=== PATIENT | male | born 1935 | race Two or more races ===

== ENCOUNTER 2018-11-28 09:46 | Inpatient (IN) | payer MEDICARE, MEDICAID ==
[~2018-11-28] VITALS: Ht 172.7 cm; Wt 79.3 kg
[~2018-11-28 09:46] MED LIST: A & D OINT1 APPLI1 TOPIC; ARICEPT10 MG GT; ASPIR 8181 MG GT; CIPRO500 MG GT; COLACE250 MG GT; CRANBERRY500 M4 PO; DOCUSATE S50 MG/5 ML GT; DULCOLAX10 MG RC; FERROUS SU300 MG/5 M GT; FLONASE1 SPRAYS NASAL; FUROSEMIDE20 M1 ORAL; HEPARIN SO5000 UNIT2 SUBQ; HEPARIN2000 UNIT/ SUBQ; JANUVIA100 MG GT; KEPPRA LIQ100 MG/1 M GT; KEPPRA500 MG GT; LANTUS SOL100 UNIT/1 SUBQ; LASIX20 M1 ORAL; LEVAQUIN500 MG ORAL; LOPRESSOR25 M1 GT; METFORMIN HCL500 M1 GT; MILK OF MA2400 MG/10 GT; MIRALAX17 G2 GT; MOM30 ML GT; MULTIVITAMINS1 EAC8 GT; PROSCAR5 MG GT; PROSTATE PQ TA1 EACH PO; SENNA8.6 M3 GT; SIMVASTATIN5 MG GT; SINGULAIR10 MG GT; SINGULAIR10 MG ORAL; TYLENOL650 MG/20. GT; UTI-STAT L3875 MG/31 GT; VITAMIN C500 M1 GT; ZANTAC150 MG GT; ZETIA10 MG GT; ZETIA10 MG ORAL; ZOCOR20 M1 GT
[2018-11-28] MEDS ORDERED: ARTIFICIAL TEAR15 ML BOTH EYES (10:00)
[2018-11-28] MEDS ORDERED: KEPPRA LIQ100 MG/1 M GT (10:10)
[2018-11-28] MEDS ORDERED: LIPITOR40 MG GT (10:10)
[2018-11-28] MEDS ORDERED: VITAMIN D22000 UNIT GT (10:10)
[2018-11-28] MEDS ORDERED: CARVEDILOL12.5 MG GT (10:10)
[2018-11-28] MEDS ORDERED: LACTULOSE20 GM/301 GT (10:10)
[2018-11-28] MEDS ORDERED: PROSCAR5 MG GT (10:10)
[2018-11-28] MEDS ORDERED: FUROSEMIDE20 M1 GT (10:10)
[2018-11-28] MEDS ORDERED: LANTUS SOL100 UNIT/1 SUBQ (10:10)
[2018-11-28] MEDS ORDERED: ASPIRIN81 MG GT (10:10)
[2018-11-28] MEDS ORDERED: JANUVIA25 MG GT (10:10)
[2018-11-28] MEDS ORDERED: MIRALAX17 G2 GT (10:15)
[2018-11-28] MEDS ORDERED: levETIRAcetam 1,000mg/NS100ml 100 ML IVPB ONE (10:15)
[2018-11-28] MEDS ORDERED: NOVOLIN R100 UNIT/1 SUBQ (10:15)
[2018-11-28] MEDS ORDERED: POTASSIUM CHLO20 ME2 GT (10:15)
[2018-11-28] MEDS ORDERED: GAS RELIEF125 M1 GT (10:15)
[2018-11-28] MEDS ORDERED: LOSARTAN POTASS50 MG GT (10:15)
[2018-11-28] MEDS ORDERED: ZANTAC150 MG GT (10:15)
[2018-11-28] MEDS ORDERED: CULTURELLE1 EACH GT (10:17)
[2018-11-28] MEDS ORDERED: CLONIDINE0.1 MG GT (10:19)
[2018-11-28 10:42] VITALS: BP 168/94
[2018-11-28 10:47] LABS: APPEARANCE,URINE CLEAR; BASOPHILS % (AUTO) 0.3 % (0.0-2.0); BILIRUBIN, URINE NEGATIVE (NEGATIVE); EOSINOPHILS % (AUTO) 2.7 % (0.0-3.0); GLUCOSE, URINE (UA) NEGATIVE (NEGATIVE); HEMOGLOBIN 12.1 G/DL (14.2-18.0); KETONES,URINE NEGATIVE (NEGATIVE); LEUKOCYTE ESTERASE ,URINE 3+ (NEGATIVE); LYMPHOCYTES % (AUTO) 19.5 % (20.0-45.0); MEAN CORPUSCULAR VOLUME 87 FL (80-99); MONOCYTES % (AUTO) 6.8 % (1.0-10.0); NEUTROPHILS % (AUTO) 70.6 % (45.0-75.0); NITRITE,URINE POSITIVE (NEGATIVE); PH,URINE 6 (4.5-8.0); PLATELET COUNT 237 K/UL (150-450); PROTEIN,URINE 2+ (NEGATIVE); RED BLOOD COUNT 4.25 M/UL (4.70-6.10); RED CELL DISTRIBUTION WIDTH 13.6 % (11.6-14.8); UROBILINOGEN,URINE NORMAL MG/DL (0.0-1.0); WHITE BLOOD COUNT 9.4 K/UL (4.8-10.8)
[2018-11-28 10:55] LABS: COLOR,URINE YELLOW
--- NOTE | 2018-11-28 10:55 | NUR ---
ED Nurse Note:pt. was BIBA from SNF with dislodged GT and s/p seizure, pt. is alert but not oriented at all as his base line, skin is intact with redness and irritation around GT site , blood and urine was sent to labs and IV keppra given, pt. was placed on air sampling and monitoring with seizure precausions, side rails padded
[2018-11-28 10:58] LABS: ANION GAP 6 mmol/L (5-15); BLOOD UREA NITROGEN 15 mg/dL (7-18); CALCIUM 8.7 MG/DL (8.5-10.1); CARBON DIOXIDE 28 MMOL/L (21-32); CHLORIDE 107 MMOL/L (98-107); CREATININE 0.7 MG/DL (0.55-1.30); POTASSIUM 3.7 MMOL/L (3.5-5.1); SODIUM 141 MMOL/L (136-145)
[2018-11-28] MEDS ORDERED: cefTRIAXone 1 GM in NS 55 ML IVPB ONE (11:00)
[2018-11-28 11:13] LABS: ALANINE AMINOTRANSFERASE 15 U/L (12-78); ALBUMIN 2.7 G/DL (3.4-5.0); ALBUMIN/GLOBULIN RATIO 0.6 (1.0-2.7); ALKALINE PHOSPHATASE 108 U/L (46-116); ASPARTATE AMINO TRANSFERASE 18 U/L (15-37); BILIRUBIN,TOTAL 0.7 MG/DL (0.2-1.0); CKMB 0.6 NG/ML (0.0-3.6); CREATINE KINASE 124 U/L (26-308)
--- NOTE | 2018-11-28 12:40 | Diagnostic Imaging Report ---
Indication: Cough Technique: One view of the chest Comparison: 05/24/2015 Findings: The heart is enlarged. The left hemidiaphragm is somewhat obscured, may reflect some atelectasis, pleural fluid, or consolidation at the left lung base. The right lung and pleural space are clear.. Impression: Cardiomegaly. Possible left basilar pleural and/or parenchymal disease
[2018-11-28 13:08] VITALS: BP 157/95
[2018-11-28 13:10] VITALS: BP 157/74
--- NOTE | 2018-11-28 13:10 | NUR ---
ED Nurse Note:called report to tele nurse hugo Mcknight. was taken up
--- NOTE | 2018-11-28 13:15 | NUR ---
NURSE NOTES: Received report from JERICHO Hogan. Patient transferred from ED to tele. quality control on, IV on left hand 22G, asymptomatic, patent, intact. No active s/s cardiac, respiratory distress noticed at this time, no seizure at this time. Endorsed EDMD inserted G-tube, confirmed by x-ray abd. AOx0, open eyes spontaneously, patient on room air. Skin assessed, redness on sacral area, scrotum area, on lower back white/red suspecting psoriasis with no openings, redness around g-tube area d/t device related pressure. Bed in lowest position, side rails padded, up x2, call light within reach. Will continue to monitor.
--- NOTE | 2018-11-28 13:45 | NUR ---
NURSE NOTES: Called Dr. Garrido for admission order. Awaiting for callback.
--- NOTE | 2018-11-28 14:52 | Diagnostic Imaging Report ---
Indication: Post gastrostomy placement Technique: Supine view of the abdomen after injection of water-soluble contrast into gastrostomy Comparison: 05/27/2015 Findings: Contrast opacifies the stomach. No contrast extravasation is demonstrated. The bowel gas pattern is unremarkable. Impression: Satisfactory position of gastrostomy tube
[2018-11-28 16:00] VITALS: BP 132/81
--- NOTE | 2018-11-28 16:00 | NUR ---
NURSE NOTES: Called Dr. Love second time for admission order. Awaiting for callback.
--- NOTE | 2018-11-28 17:05 | NUR ---
NURSE NOTES: Received admission orders from Dr. Love. Per Dr. DUNBAR without contrast, NPO except medication at this time follow up with Dr. Appiah for diet order. Order noted, entered, carried out. Will continue to monitor.
--- NOTE | 2018-11-28 17:28 | Emergency Room Report ---
History of Present Illness General Chief Complaint: Seizure Source: Medical Record, EMS, PMD Present Illness HPI Patient presents to the emergency department today complaining of acute onset of seizures. Patient apparently also has a G-tube. Patient at baseline is bedridden. Patient was found to have a dislodged G-tube because of this. Contacted and patient was developed. Patient does have a history of seizures. Patient reports he is compliant with medications because medications are usually administered. Patient seizure spontaneously resolved prior to the emergency patient was transferred I am unable to obtain any history other in the history obtained from paramedics. In from care home patient's primary care physician is Dr. Michael. Symptoms are noted to be severe. No other modifying factors. No other associated signs and symptoms. No other complaints were noted. Allergies: Coded Allergies: NO KNOWN DRUG ALLERGIES (Unverified Allergy, Unknown, 05/24/15) Patient History Past Medical History: other - dementia, g-tube, seizures Past Surgical History: other Social History Narrative stays at [facility]. Reviewed Nursing Documentation: PMH: Agreed; PSxH: Agreed Nursing Documentation-PMH Past Medical History: No History, Except For Hx Cardiac Problems: Yes - HYPERLIPIDEMIA Hx Hypertension: Yes Hx Diabetes: Yes - TYPE2 Hx Cancer: No Hx Gastrointestinal Problems: Yes - GT, GERD Hx Neurological Problems: Yes - DEMENTIA Hx Dementia: Yes Hx Seizures: Yes Review of Systems All Other Systems: negative except mentioned in HPI Physical Exam Vital Signs Date Time Temp Pulse Resp B/P (MAP) Pulse Ox O2 Delivery O2 Flow Rate FiO2 11/28/18 09:40 98.4 75 19 181/100 (127) 98 Room Air Sp02 EP Interpretation: reviewed, normal General Appearance: other - weak, not very responsive, Chronically Ill Head: atraumatic Eyes: bilateral eye normal inspection ENT: normal ENT inspection, hearing grossly normal, dry mucus membranes Neck: normal inspection, full range of motion, supple, no bony tend Respiratory: normal inspection, lungs clear, normal breath sounds, no respiratory distress, no retraction, no wheezing Cardiovascular #1: regular rate, rhythm, no edema Gastrointestinal: normal bowel sounds, non tender, soft, no guarding, no hernia , other - gastrostomy site intact. No active bleeding Genitourinary: no CVA tenderness Musculoskeletal: normal inspection, back normal, normal range of motion Neurologic: normal inspection, alert, responsive, speech normal Psychiatric: normal inspection, judgement/insight normal, mood/affect normal Skin: no rash Procedures Additional Procedure Procedure Narrative G-tube replacement procedure: After consent was obtained from patient's primary care physician for procedure the G-tube stoma was prepped in the sterile manner. G-tube was gently introduced into the stoma until it was about 7 cm in. The G-tube balloon was inflated with 5 mL of sterile water. The G-tube was gently retracted and another 5 mL of sterile water was added. The G-tube was retracted until it could be retracted no further. Another 10 mL of sterile water was added. The G -tube was tacked in place at about 2-3 cm. There is no complications associated procedure. Placement was confirmed by x-ray as interpreted by radiology. 18 iraqi G-tube was used. Medical Decision Making Diagnostic Impression: Primary Impression: Epileptic seizure, generalized Additional Impressions: Dislodged gastrostomy tube UTI (urinary tract infection) Pneumonia ER Course Patient presents emergency department today complaining of dislodged G-tube. Differential diagnosis include electrolyte abnormality, medication noncompliance , G-tube dislodgment, infectious process, intracranial process to name a few. Given the severity of the patient's presentation I felt this is a highly complex patient. This patient required extensive workup. Patient's laboratory work-up shows evidence of UTI. Patient was given Rocephin. In addition patient require replacement G-tube. G-tube was replaced. Patient was also given a Keppra loading dose seizure. Case was discussed in detail with Dr. Hernandez. Patient will be admitted to telemetry for further management Labs Test 11/28/18 10:20 White Blood Count 9.4 K/UL (4.8-10.8) Red Blood Count 4.25 M/UL (4.70-6.10) Hemoglobin 12.1 G/DL (14.2-18.0) Hematocrit 37.0 % (42.0-52.0) Mean Corpuscular Volume 87 FL (80-99) Mean Corpuscular Hemoglobin 28.5 PG (27.0-31.0) Mean Corpuscular Hemoglobin Concent 32.7 G/DL (32.0-36.0) Red Cell Distribution Width 13.6 % (11.6-14.8) Platelet Count 237 K/UL (150-450) Mean Platelet Volume 6.4 FL (6.5-10.1) Neutrophils (%) (Auto) 70.6 % (45.0-75.0) Lymphocytes (%) (Auto) 19.5 % (20.0-45.0) Monocytes (%) (Auto) 6.8 % (1.0-10.0) Eosinophils (%) (Auto) 2.7 % (0.0-3.0) Basophils (%) (Auto) 0.3 % (0.0-2.0) Urine Color Yellow Urine Appearance Clear Urine pH 6 (4.5-8.0) Urine Specific [place] 1.015 (1.005-1.035) Urine Protein 2+ (NEGATIVE) Urine Glucose (UA) Negative (NEGATIVE) Urine Ketones Negative (NEGATIVE) Urine Blood 1+ (NEGATIVE) Urine Nitrite Positive (NEGATIVE) Urine Bilirubin Negative (NEGATIVE) Urine Urobilinogen Normal MG/DL (0.0-1.0) Urine Leukocyte Esterase 3+ (NEGATIVE) Urine RBC 0-2 /HPF (0 - 0) Urine WBC 20-30 /HPF (0 - 0) Urine Squamous Epithelial Cells Few /LPF (NONE/OCC) Urine Bacteria Many /HPF (NONE) Sodium Level 141 MMOL/L (136-145) Potassium Level 3.7 MMOL/L (3.5-5.1) Chloride Level 107 MMOL/L (98-107) Carbon Dioxide Level 28 MMOL/L (21-32) Anion Gap 6 mmol/L (5-15) Blood Urea Nitrogen 15 mg/dL (7-18) Creatinine 0.7 MG/DL (0.55-1.30) Estimat Glomerular Filtration Rate mL/min (>60) Glucose Level 157 MG/DL (74-106) Calcium Level 8.7 MG/DL (8.5-10.1) Total Bilirubin 0.7 MG/DL (0.2-1.0) Aspartate Amino Transf (AST/SGOT) 18 U/L (15-37) Alanine Aminotransferase (ALT/SGPT) 15 U/L (12-78) Alkaline Phosphatase 108 U/L (46-116) Total Creatine Kinase 124 U/L (26-308) Creatine Kinase MB 0.6 NG/ML (0.0-3.6) Creatine Kinase MB Relative Index 0.4 Troponin I 0.000 ng/mL (0.000-0.056) Pro-B-Type Natriuretic Peptide 344 pg/mL (0-125) Total Protein 7.2 G/DL (6.4-8.2) Albumin 2.7 G/DL (3.4-5.0) Globulin 4.5 g/dL Albumin/Globulin Ratio 0.6 (1.0-2.7) Lipase 83 U/L (73-393) EKG Diagnostic Results Rate: normal Rhythm: NSR ST Segments: no acute changes Rhythm Strip Diag. Results EP Interpretation: yes Rate: 80s Rhythm: NSR, no PVC's, no ectopy Chest X-Ray Diagnostic Results Chest X-Ray Diagnostic Results : Chest X-Ray Ordered: Yes # of Views/Limited/Complete: 1 View Indication: Shortness of Breath EP Interpretation: No Impression: Other - possible left sided process Last Vital Signs Date Time Temp Pulse Resp B/P (MAP) Pulse Ox O2 Delivery O2 Flow Rate FiO2 11/28/18 14:09 Room Air 11/28/18 13:10 97.7 70 16 157/74 (101) 97 Status: improved Disposition: ADMITTED INPATIENT Condition: Serious Referrals: Sanjiv Love MD (PCP) Gabe Lopez MD Nov 28, 2018 17:28
[2018-11-28] MEDS ORDERED: LORazepam Inj 2mg/ml 1ml IV PRN (17:30)
[2018-11-28] MEDS: Lactulose 20gm/30ml UDC GT SCH (18:18)
[2018-11-28] MEDS: Docusate 100mg/10ml Liq GT SCH (18:18)
[2018-11-28] MEDS: Artificial Tears 1.4% Op Soln BOTH EYES SCH (18:30)
--- NOTE | 2018-11-28 19:34 | NUR ---
NURSE NOTES: Per Dr. Love, OFF tele order. Order noted, entered, carried out.
--- NOTE | 2018-11-28 19:35 | NUR ---
HAND-OFF: Report given to JERICHO Rain.
--- NOTE | 2018-11-28 19:41 | NUR ---
NURSE NOTES: Received report from JERICHO Mcknight. Patient is asleep, lying semi-fowlers, resting comfortably. Arousable to shaking. No signs of acute distress or pain noted at this time. AOx0, unable to make needs known. Checked IV site, patent, no erythmia, bleeding, or infiltration noted. G-tube patent and flushed. Mild redness noted around stoma site. Bed at lowest position, brakes on, side rails up x3, side rails padded following seizure precautions. Suction at bedside. Call light within reach. Will continue plan of care.
[2018-11-28 20:00] VITALS: BP 141/78
[2018-11-28] MEDS: NovoLOG Insulin Flexpen SUBQ SCH (20:35)
[2018-11-28] MEDS: Miralax 17gm pkt GT SCH (20:36)
--- NOTE | 2018-11-28 20:44 | NUR ---
NURSE NOTES: Received order from Dr. Love for Duoneb nebulizer Q6HR [id number] medication. Noted and carried out.
--- NOTE | 2018-11-28 21:16 | NUR ---
NURSE NOTES: Received orders from Dr. Appiah. Noted and carried out.
[2018-11-28] MEDS: Heparin 5000 units/ml inj SUBQ SCH (21:17)
[2018-11-28] MEDS: Montelukast 10mg tablet GT SCH (21:26)
[2018-11-28] MEDS: Carvedilol 25mg Tab GT SCH (21:26)
[2018-11-28] MEDS: Atorvastatin 20mg tab GT SCH (21:26)
[2018-11-28] MEDS: Levemir Flexpen SUBQ SCH (21:27)
[2018-11-28] MEDS: Flonase Nasal Inhaler 16gm NASAL SCH (21:27)
[2018-11-28] MEDS: D5 1/2NS 1,000 ML IV SCH (21:49)
[2018-11-28] MEDS ORDERED: Azithromycin 500 MG in NS 275 ML IV ONE (22:00)
[2018-11-29] VITALS: BP 148/72
[2018-11-29] MEDS: Artificial Tears 1.4% Op Soln BOTH EYES SCH ×4 (00:38→17:37)
[2018-11-29] MEDS: Albuterol/Ipratropium 3ml neb HHN SCH ×2 (01:22→07:43)
--- NOTE | 2018-11-29 01:45 | History and Physical Report ---
DATE OF ADMISSION: 11/28/2018 CHIEF COMPLAINT: Seizure, dislodged G-tube, and UTI. HISTORY OF PRESENT ILLNESS: This is a very pleasant, but unfortunate 83-year-old male, resident of [facility], who was noted this morning to have a seizure and his G-tube got dislodged. The patient was transferred via ambulance 911 to [facility] ER where he was found to have a UTI. He was started on Rocephin for urinary tract infection and also Keppra for his seizure activity. The G-tube was replaced by the ER doctor and was confirmed for placement. The patient will be admitted for IV antibiotics. Neurology consult for seizure activity and G-tube management. REVIEW OF SYSTEMS: The patient is demented and unable to give review of systems. Pertinent positives and negatives per history of present illness. PAST MEDICAL HISTORY: History of dementia, history of seizures, history of diabetes, history of hyperlipidemia, history of GI bleed, history of dysphagia status post PEG, history of advanced Alzheimer's dementia, history of GERD, history of chronic constipation, and history of prior pneumonia. FAMILY HISTORY: Noncontributory. SOCIAL HISTORY: The patient is . His lives in the area. His daughter attends to his medical needs. No history of smoking, drugs, or alcohol use. He lives at [facility]. ALLERGIES: No known drug allergies. PHYSICAL EXAMINATION: VITAL SIGNS: Blood pressure is 132/81, pulse 69, respiratory rate 20, and temperature 97.9. Saturating 98% on room air. GENERAL: He is a well-nourished and well-developed, slightly overweight male looking younger than stated age. He appears in no acute distress. HEENT: Normocephalic and atraumatic. Extraocular muscles are intact. Pupils are equal, round, and reactive to light. Anicteric sclerae. Oropharynx is poor dentition and dry. NECK: Supple. CHEST: Clear to auscultation with occasional rhonchi. CARDIAC: Normal S1, S2. No murmurs, rubs, or gallops. ABDOMEN: Bowel sounds positive. Belly is soft and nontender. G-tube is intact. EXTREMITIES: No clubbing, cyanosis, or edema. NEUROLOGIC: The patient is awake and alert, but nonverbal. Does not follow commands. Lower extremities are in flexion contracture. SKIN: Clear without any rash or petechiae. No ulcers noted. LABORATORY DATA: Laboratory evaluation on admission, the patient's WBC is 9.4, hemoglobin 12.1, hematocrit 37.0, and platelet count 237. Chemistry panel shows a sodium 141, potassium 3.7, chloride 107, carbon dioxide 28, anion gap 6, BUN 15, and creatinine 0.7. Glucose is 157. Calcium is 8.7. Total bilirubin 0.7, AST 18, ALT 15, and alkaline phosphatase 108. Total creatine kinase is 124. Troponin 0. Beta-natriuretic peptide is 344. Total protein is 7.4. Albumin is low at 2.7, globulin 4.5. Lipase 633. Urinalysis is yellow, clear. Specific gravity is 1.015, 2+ protein, negative glucose and ketones, 1+ blood, positive nitrite, 2+ leukocytes, 20-30 white cells, and many bacteria. Chest x-ray done in the ER shows possible left basal pleural and parenchymal disease. KUB done in the ER shows satisfactory position of gastrostomy tube. IMPRESSION: This is an 83-year-old male admitted with seizure activity, urinary tract infection, possible left lower lobe pneumonia, and dislodged G-tube. The patient will be admitted to telemetry floor with the following medical problems, 1. Seizure activity, new-onset. We will get neurology consult and MRI of the brain. EEG will be ordered by Neurology. Continue with Keppra 500 mg twice a day via G-tube. We will get Ativan 1 mg as needed seizure. Seizure precautions. Aspiration precautions. 2. Urinary tract infection, on Rocephin. Follow up on urine cultures. We will get Infectious Disease consult. 3. Hypertension, poorly controlled. We will increase carvedilol to 25 mg b.i.d. and continue with other current blood pressure medications. 4. Dislodged G-tube. We will get the GI consult. We will hold the G-tube feeds until GI determines when to start feeds. 5. Possible left lower lobe pneumonia. Continue with IV antibiotics. ID is consulted. 6. Continue supportive care. 7. History of chronic constipation. Continue bowel regimen with MiraLax and Colace. 8. Diabetes mellitus. We will place the patient on insulin sliding scale and continue Januvia. Diabetic diet will be started when cleared by GI. 9. VT prophylaxis with heparin subcutaneous 5000 every 8 hours. 10. The patient is Full Code per POL. Sanjiv Love M.D. DR: SHY JOB#: [id number] CC:
--- NOTE | 2018-11-29 03:30 | NUR ---
NURSE NOTES: Patient is asleep lying semi-irizarry's; resting comfortably. No signs of acute distress or pain noted at this time.
[2018-11-29 04:00] VITALS: BP 142/80
[2018-11-29] MEDS: Heparin 5000 units/ml inj SUBQ SCH ×2 (06:00→21:11)
[2018-11-29] MEDS: NovoLOG Insulin Flexpen SUBQ SCH ×4 (06:20→21:11)
[2018-11-29] MEDS: D5 1/2NS 1,000 ML IV SCH ×2 (06:41→17:44)
[2018-11-29 07:13] LABS: BASOPHILS % (AUTO) 0.7 % (0.0-2.0); EOSINOPHILS % (AUTO) 3.1 % (0.0-3.0); HEMATOCRIT 33.5 % (42.0-52.0); HEMOGLOBIN 10.8 G/DL (14.2-18.0); LYMPHOCYTES % (AUTO) 21.6 % (20.0-45.0); MEAN CORPUSCULAR VOLUME 88 FL (80-99); MONOCYTES % (AUTO) 7.1 % (1.0-10.0); NEUTROPHILS % (AUTO) 67.5 % (45.0-75.0); PLATELET COUNT 235 K/UL (150-450); RED BLOOD COUNT 3.82 M/UL (4.70-6.10); WHITE BLOOD COUNT 7.9 K/UL (4.8-10.8)
--- NOTE | 2018-11-29 07:21 | NUR ---
HAND-OFF: Report given to JERICHO Min. Patient is asleep, lying semi-irizarry, resting comfortably. No seizure activity noted throughout shift, in stable condition.
--- NOTE | 2018-11-29 07:38 | NUR ---
NURSE NOTES: Received report from Briseyda/RN, Patient is asleep, lying semi-fowlers, resting comfortably. No signs of acute distress or pain noted at this time. unable to make needs known. Checked IV site, patent, no bleeding, or infiltration noted. Bed at lowest position, and locked. brakes on, side rails up x3, side rails padded for seizure precautions. Suction at bedside. Call light within reach. Will continue plan of care.
[2018-11-29 07:59] LABS: ALANINE AMINOTRANSFERASE 10 U/L (12-78); ALBUMIN 2.7 G/DL (3.4-5.0); ALBUMIN/GLOBULIN RATIO 0.6 (1.0-2.7); ALKALINE PHOSPHATASE 103 U/L (46-116); ANION GAP 8 mmol/L (5-15); ASPARTATE AMINO TRANSFERASE 15 U/L (15-37); BILIRUBIN,TOTAL 0.8 MG/DL (0.2-1.0); BLOOD UREA NITROGEN 16 mg/dL (7-18); CALCIUM 8.9 MG/DL (8.5-10.1); CARBON DIOXIDE 27 MMOL/L (21-32); CHLORIDE 109 MMOL/L (98-107); CHOLESTEROL 124 MG/DL (< 200); CREATININE 0.8 MG/DL (0.55-1.30); HDL CHOLESTEROL 42 MG/DL (40-60); POTASSIUM 3.7 MMOL/L (3.5-5.1); SODIUM 144 MMOL/L (136-145); TRIGLYCERIDES 102 MG/DL (30-150)
[2018-11-29 08:00] VITALS: BP 126/76
--- NOTE | 2018-11-29 08:29 | NUR ---
NURSE NOTES:WOUND CARE NOTES:Pt presented on admission with MASD abd folds , bilat groin, scrotum and cleft of buttocks. Erythema with scattered satellite lesions noted. Sacral area is pink and blanchable. Non-blanchable erythema without fluctuance both heels. Mild erosions at GT site . Oozing small amt serous exudate. Recommendations. Wash Gt site Daily with soap and water.Gently pat dry. Apply 4x4 sponges under disk.( Do not tape). Apply Triad paste to abd folds, bilat groin ,scrotum and buttocks with each perineal care. Apply Optifoam drsg to sacrum. Change every 3 days and prn. Apply Cavilon Skin Barrier to both heels.Cover each heels with Optifoam drsg. Change every 7 days and prn. Reposition at least every 2hours or as tolerated. Off-load heels with pillow.
[2018-11-29] MEDS: Carvedilol 25mg Tab GT SCH ×2 (09:11→21:09)
[2018-11-29] MEDS: Aspirin Baby 81mg GT SCH (09:11)
[2018-11-29] MEDS: Losartan 50mg tab GT SCH (09:11)
[2018-11-29] MEDS: Magnesium Oxide 400mg tab GT SCH (09:12)
[2018-11-29] MEDS: Simethicone 80mg tab GT SCH (09:12)
[2018-11-29] MEDS: Flonase Nasal Inhaler 16gm NASAL SCH ×2 (09:13→21:11)
[2018-11-29] MEDS: Docusate 100mg/10ml Liq GT SCH ×2 (09:14→17:37)
[2018-11-29] MEDS: cefTRIAXone 1 GM in D5W 55 ML IVPB SCH (09:14)
[2018-11-29] MEDS: Lactulose 20gm/30ml UDC GT SCH ×2 (09:14→17:37)
--- NOTE | 2018-11-29 09:49 | NUR ---
RD ASSESSMENT & RECOMMENDATIONS SEE CARE ACTIVITY FOR COMPLETE ASSESSMENT DAILY ESTIMATED NEEDS: Needs based on bed bound, DM, wound, 72kg adj 23-28 kcals/kg 8837-0857 total kcals 1.25-1.5 g protein/kg 90-108 g total protein 25-30 mL/kg 7159-1772 total fluid mLs NUTRITION DIAGNOSIS: 1)Increased kcal and protein needs R/T wound healing AEB pt w/ sacral wound, partial thickness per documentation. 2) Swallowing difficulty R/T dysphagia AEB pt w/ PEG feedings 3) Altered nutrition related lab values R/T diabetes AEB elev BG (157-154), A1C 6.6 ENTERAL NUTRITION RECOMMENDATIONS: Glucerna 1.5 @50ml/hr x 24 hrs to provide 1200ml, 1800 kcal, 99g pro, 911ml free H2O - As medically able, rec to initiate Glucerna 1.5 @30ml/hr for 6 hrs. - Advance 10ml/hr q4-6 hrs as tolerated to goal - Flush per MD/ HOB over 30 degrees ADDITIONAL RECOMMENDATIONS: 1) Add JG BID for wound care 2) Add NISS w/ tube feedings 3) Obtain a calibrated bed scale wt for accurate CBW 4) Monitor lytes daily on lasix/ replete as needed
--- NOTE | 2018-11-29 09:54 | NUR ---
MRI BRAIN W/O COMPLETED
[2018-11-29] MEDS ORDERED: Albuterol/Ipratropium 3ml neb HHN PRN (11:45)
--- NOTE | 2018-11-29 11:45 | Consultation ---
Consult Note Assessment/Plan DICT # [id number] Bhaskar Chen MD Nov 29, 2018 11:45
--- NOTE | 2018-11-29 11:57 | Diagnostic Imaging Report ---
Indication: Seizure activity, advanced dementia Technique: sagittal T1 fast spin echo, axial T1 FLAIR, axial T2 FLAIR, axial T2 FS PROPELLER, axial T2* GRE, axial diffusion weighted images. ADC and exponential ADC maps generated Comparison: No comparison MRI. Reference made to brain CT dated 09/29/2014 Findings: There is some image degradation due to motion artifact on the T2 FLAIR sequences No abnormal areas of restricted diffusion to suggest acute infarction. No acute hemorrhage or edema. No mass effect nor midline shift. There is marked age-related enlargement of the ventricles and extra axial CSF spaces. There is some periventricular confluent deep white matter high T2 signal consistent with chronic microvascular ischemic change. The vascular flow voids are preserved. There is minimal mastoid effusion bilaterally. There is a small right maxillary sinus polyp or mucous retention cyst.. Impression: Chronic and age-related changes, as described Negative for acute intracranial bleed, mass effect, or infarct
[2018-11-29 12:00] VITALS: BP 145/88
--- NOTE | 2018-11-29 13:31 | NUR ---
CASE MANAGEMENT:REVIEW 83 YR OLD MALE BIBA FROM [facility] CC; GTUBE DISLODGED, UNABLE TO GIVE KEPPRA, HAD SEIZURE SI: SEIZURE. UTI. PNEUMONIA 98.4 75 19 98% ON RA GLUCOSE+344 IS: IV KEPPRA CHEST XRAY : TO TELEMETRY UNIT INTERQUAL CRITERIA MET
[2018-11-29] MEDS ORDERED: Tubing IV Secondary IV ONE (13:33)
[2018-11-29] MEDS ORDERED: D5 1/2NS 1000ml IV ONE (13:33)
--- NOTE | 2018-11-29 15:27 | General Progress Note ---
Assessment/Plan Assessment/Plan: GI CONSULT GT changed. Will restart TF Thank you Yudy Appiah MD Subjective Allergies: Coded Allergies: NO KNOWN DRUG ALLERGIES (Unverified Allergy, Unknown, 05/24/15) Objective Last 24 Hour Vital Signs Date Time Temp Pulse Resp B/P (MAP) Pulse Ox O2 Delivery O2 Flow Rate FiO2 11/29/18 12:00 97.9 66 22 145/88 (107) 94 11/29/18 09:11 126/76 11/29/18 09:11 60 126/76 11/29/18 09:00 Room Air 11/29/18 08:00 98.2 60 23 126/76 (93) 96 11/29/18 08:00 71 11/29/18 07:41 78 20 99 Room Air 21 74 20 97 11/29/18 04:00 97.8 71 18 142/80 (100) 98 11/29/18 04:00 70 11/29/18 01:17 83 18 100 Room Air 21 83 16 98 11/29/18 00:00 73 11/29/18 00:00 97.9 74 16 148/72 (97) 93 11/28/18 21:26 75 141/78 11/28/18 21:00 Room Air 11/28/18 20:00 96.4 75 18 141/78 (99) 94 11/28/18 20:00 75 11/28/18 16:00 69 11/28/18 16:00 97.9 74 20 132/81 (98) 98 Intake and Output 11/28/18 11/29/18 19:00 07:00 Intake Total 1025 ml Balance 1025 ml Intake IV Total 1025 ml # Voids 2 3 # Bowel Movements 1 4 Laboratory Tests 11/29/18 05:37: White Blood Count 7.9, Red Blood Count 3.82L, Hemoglobin 10.8L, Hematocrit 33.5L , Mean Corpuscular Volume 88, Mean Corpuscular Hemoglobin 28.4, Mean Corpuscular Hemoglobin Concent 32.3, Red Cell Distribution Width 14.0, Platelet Count 235, Mean Platelet Volume 6.8, Neutrophils (%) (Auto) 67.5, Lymphocytes (% ) (Auto) 21.6, Monocytes (%) (Auto) 7.1, Eosinophils (%) (Auto) 3.1H, Basophils (%) (Auto) 0.7, Sodium Level 144, Potassium Level 3.7, Chloride Level 109H, Carbon Dioxide Level 27, Anion Gap 8, Blood Urea Nitrogen 16, Creatinine 0.8, Estimat Glomerular Filtration Rate , Glucose Level 254H, Hemoglobin A1c 6.6H, Calcium Level 8.9, Total Bilirubin 0.8, Aspartate Amino Transf (AST/SGOT) 15, Alanine Aminotransferase (ALT/SGPT) 10L, Alkaline Phosphatase 103, Total Protein 7.1, Albumin 2.7L, Globulin 4.4, Albumin/Globulin Ratio 0.6L, Triglycerides Level 102, Cholesterol Level 124, LDL Cholesterol 65, HDL Cholesterol 42, Cholesterol/HDL Ratio 3.0L, Vitamin D 25-Hydroxy [Pending], 25- Hydroxy Vitamin D2 [Pending], 25-Hydroxy Vitamin D3 [Pending], Thyroid Stimulating Hormone (TSH) 2.266 Height (Feet): 5 Height (Inches): 8.00 Weight (Pounds): 174 Chava Appiah MD Nov 29, 2018 15:27
[2018-11-29 16:00] VITALS: BP 130/72
--- NOTE | 2018-11-29 17:00 | Consultation ---
DATE OF CONSULTATION: 11/29/2018 PULMONARY CONSULTATION CONSULTING PHYSICIAN: Bhaskar Chen M.D. REFERRING PHYSICIAN: Sanjiv Love M.D. REASON FOR CONSULTATION: Possible pulmonary infiltrate and pleural effusion. HISTORY OF PRESENT ILLNESS: The patient is an 83-year-old nonverbal residential resident with dysphagia status post G-tube, transferred for possible seizure and G-tube dislodgement, noted to have urinary tract infection as well as a possible retrocardiac infiltrate and left-sided effusion. The patient here in the hospital has been afebrile with stable vital signs, saturating well on room air. Unable to provide any history himself. Per the nurse, no cough, no wheezing, no hemoptysis. No fevers. No chills. He is currently on Rocephin alone, presumably for urinary tract infection and has been started on [id number] DuoNebs. He also gets Lasix per his G-tube and is on heparin subcutaneous for DVT prophylaxis. I actually had seen this patient here previously in 2016 when he was admitted with GI bleed at the time. There was concern for respiratory distress, but he had no active respiratory issues. He has been on Singulair and Flonase for allergic rhinitis. PAST MEDICAL HISTORY: 1. assisted resident. 2. Bedbound. 3. Dysphagia, status post G-tube. 4. Dementia. 5. Hypertension. 6. Hyperlipidemia. 7. Diabetes. 8. Seizure disorder. 9. Osteoarthritis. 10. Anemia. 11. Allergic rhinitis. 12. Chronic constipation. PAST SURGICAL HISTORY: None reported. ALLERGIES: No known drug allergies. MEDICATIONS: Prior to admission medications reviewed. Current medications reviewed. SOCIAL HISTORY: assisted resident, otherwise unknown. FAMILY HISTORY: Noncontributory. REVIEW OF SYSTEMS: Unobtainable. PHYSICAL EXAMINATION: VITAL SIGNS: Temperature 98.2, pulse 60, blood pressure 126/60, and respiratory rate 20. Saturating 96% on room air. GENERAL: He is a demented, nonverbal male, in no acute distress. HEENT: Normocephalic, atraumatic. Oropharynx is clear. Moist mucous membranes. NECK: Supple without lymphadenopathy. CHEST: Clear. No wheezing, rales, or rhonchi. HEART: Regular rate and rhythm. ABDOMEN: Soft, nontender, and nondistended. G-tube clean, dry, and intact. EXTREMITIES: No cyanosis, clubbing, or edema. ANCILLARY DATA: White count 7.9, hemoglobin 10.8, and platelet count 235,000. Sodium 144, potassium 3.7, chloride 109, bicarb 27, BUN 15, creatinine 0.8, glucose 254. Hemoglobin A1c 6.6. Calcium 8.9. Total bilirubin 0.8, AST 15, ALT 10, and alkaline phosphatase 103. Total protein 7.1, albumin 2.7, globulin 4.4. Triglycerides 102, cholesterol 124, LDL 65, and HDL 42. TSH 2.56. Urinalysis, 2+ protein, 1+ blood, positive nitrites, 3+ leukocyte esterase, and 20 to 30 whites. Urine culture, gram-negative bacilli. IMAGING: KUB showed contrast is extravasating into the G-tube. Chest x-ray reviewed by myself. This shows some opacification of the left hemidiaphragm. No infiltrate per se. ASSESSMENT: The patient is an 83-year-old male residential resident, nonverbal at baseline with dementia, dysphagia, status post G-tube, seizure disorder, hypertension, hyperlipidemia, allergic rhinitis, and diabetes, presenting with dislodged G-tube and concern for possible pneumonia. I have reviewed imaging myself. He has some opacification of the left hemidiaphragm, may represent a small pleural effusion, possibly dependent versus atelectasis at the left base. I doubt he is infected. He is afebrile, has normal white count. In terms of working up his pleural effusion and parenchymal abnormalities, this has to be reviewed in light of the overall goals of care in this nonverbal residential resident. I reviewed his prior imaging at [facility], including most recently where he had a small left-sided pleural effusion. At this time, I think a less aggressive approach would be favorable. PROBLEM LIST: 1. Left lung opacification of the hemidiaphragm, possible atelectasis versus early infiltrate versus small effusion, no sign of a respiratory infection clinically. 2. Dislodged G-tube. 3. History of seizure disorder with questionable seizure. 4. assisted resident. 5. Dementia. 6. Nonverbal at baseline. 7. Dysphagia, status post G-tube. 8. Hypertension, hyperlipidemia, diabetes, anemia, allergic rhinitis. TREATMENT PLAN: 1. Optimize pulmonary hygiene/mobilize as tolerated. 2. P.r.n. O2. 3. I will change the bronchodilators to p.r.n. 4. Consider observation off antibiotics. 5. If any sign of a respiratory infection, would then start coverage to include healthcare-associated pathogens. 6. GI evaluation of G-tube. 7. Monitor for further seizures. The patient is on Keppra and per report neurology evaluation is underway. 8. Monitor volumes and renal function. 9. DVT prophylaxis, heparin subcutaneous twice a day. 10. The patient is a Full Code, would discuss goals of care further with the family. 11. Continue Flonase for allergic rhinitis and Singulair. Dr. Love, thank you for allowing me to assist in the care of your patient. If I may be of any assistance in the future, please do not hesitate to ask. Bhaskar Cehn M.D. DR: HERBERTH JOB#: [id number] CC:
--- NOTE | 2018-11-29 17:15 | Cardiac Electrophysiology PN ---
Subjective Subjective [id number] Objective Last 24 Hour Vital Signs Date Time Temp Pulse Resp B/P (MAP) Pulse Ox O2 Delivery O2 Flow Rate FiO2 11/29/18 12:00 65 11/29/18 12:00 97.9 66 22 145/88 (107) 94 11/29/18 09:11 126/76 11/29/18 09:11 60 126/76 11/29/18 09:00 Room Air 11/29/18 08:00 98.2 60 23 126/76 (93) 96 11/29/18 08:00 71 11/29/18 07:41 78 20 99 Room Air 21 74 20 97 11/29/18 04:00 97.8 71 18 142/80 (100) 98 11/29/18 04:00 70 11/29/18 01:17 83 18 100 Room Air 21 83 16 98 11/29/18 00:00 73 11/29/18 00:00 97.9 74 16 148/72 (97) 93 11/28/18 21:26 75 141/78 11/28/18 21:00 Room Air 11/28/18 20:00 96.4 75 18 141/78 (99) 94 11/28/18 20:00 75 Intake and Output 11/28/18 11/29/18 19:00 07:00 Intake Total 1025 ml Balance 1025 ml Intake IV Total 1025 ml # Voids 2 3 # Bowel Movements 1 4 Laboratory Tests Test 11/29/18 05:37 White Blood Count 7.9 K/UL (4.8-10.8) Red Blood Count 3.82 M/UL (4.70-6.10) L Hemoglobin 10.8 G/DL (14.2-18.0) L Hematocrit 33.5 % (42.0-52.0) L Mean Corpuscular Volume 88 FL (80-99) Mean Corpuscular Hemoglobin 28.4 PG (27.0-31.0) Mean Corpuscular Hemoglobin Concent 32.3 G/DL (32.0-36.0) Red Cell Distribution Width 14.0 % (11.6-14.8) Platelet Count 235 K/UL (150-450) Mean Platelet Volume 6.8 FL (6.5-10.1) Neutrophils (%) (Auto) 67.5 % (45.0-75.0) Lymphocytes (%) (Auto) 21.6 % (20.0-45.0) Monocytes (%) (Auto) 7.1 % (1.0-10.0) Eosinophils (%) (Auto) 3.1 % (0.0-3.0) H Basophils (%) (Auto) 0.7 % (0.0-2.0) Sodium Level 144 MMOL/L (136-145) Potassium Level 3.7 MMOL/L (3.5-5.1) Chloride Level 109 MMOL/L (98-107) H Carbon Dioxide Level 27 MMOL/L (21-32) Anion Gap 8 mmol/L (5-15) Blood Urea Nitrogen 16 mg/dL (7-18) Creatinine 0.8 MG/DL (0.55-1.30) Estimat Glomerular Filtration Rate mL/min (>60) Glucose Level 254 MG/DL (74-106) H Hemoglobin A1c 6.6 % (4.3-6.0) H Calcium Level 8.9 MG/DL (8.5-10.1) Total Bilirubin 0.8 MG/DL (0.2-1.0) Aspartate Amino Transf (AST/SGOT) 15 U/L (15-37) Alanine Aminotransferase (ALT/SGPT) 10 U/L (12-78) L Alkaline Phosphatase 103 U/L (46-116) Total Protein 7.1 G/DL (6.4-8.2) Albumin 2.7 G/DL (3.4-5.0) L Globulin 4.4 g/dL Albumin/Globulin Ratio 0.6 (1.0-2.7) L Triglycerides Level 102 MG/DL (30-150) Cholesterol Level 124 MG/DL (< 200) LDL Cholesterol 65 mg/dL (<100) HDL Cholesterol 42 MG/DL (40-60) Cholesterol/HDL Ratio 3.0 (3.3-4.4) L Vitamin D 25-Hydroxy Pending 25-Hydroxy Vitamin D2 Pending 25-Hydroxy Vitamin D3 Pending Thyroid Stimulating Hormone (TSH) 2.266 uiU/mL (0.358-3.740) Microbiology Date/Time Source Procedure Growth Status 11/28/18 10:20 Urine,Clean Catch Urine Culture - Preliminary Gram Negative Bacillus 1 Resulted Dago Womack MD Nov 29, 2018 17:15
--- NOTE | 2018-11-29 18:55 | Cardiology Report ---
APPROVED REPORT EKG Measurement Heart [id number] UT [id number] [id number] Normal sinus rhythm Nonspecific T wave abnormality Prolonged QT Abnormal ECG
--- NOTE | 2018-11-29 19:15 | NUR ---
HAND-OFF: Report given to Briseyda/RN, Patient lying semi-irizarry's, No acute distress noted. Endorsed plan of care.
[2018-11-29] MEDS ORDERED: ACETAMINOPHEN500 MG GT (19:20)
[2018-11-29] MEDS ORDERED: PRO-STAT LIQUID30 ML ORAL (19:20)
[2018-11-29] MEDS ORDERED: VITAMIN D250000 UNI1 ORAL (19:20)
[2018-11-29] MEDS ORDERED: FLEET ENEMA133 ML RECTAL (19:20)
[2018-11-29] MEDS ORDERED: DOCUSATE SODIU100 MG ORAL (19:20)
[2018-11-29] MEDS ORDERED: LEVOFLOXACIN500 MG GT (19:20)
[2018-11-29] MEDS ORDERED: MAGNESIUM OXID400 M1 GT (19:20)
[2018-11-29] MEDS ORDERED: HYDRALAZINE HCL50 MG ORAL (19:20)
[2018-11-29] MEDS ORDERED: BETADINE1 EAC1 TP (19:20)
[2018-11-29] MEDS ORDERED: CLOTRIMAZOLE15 GM TOPIC (19:20)
[2018-11-29] MEDS ORDERED: PENLAC6.6 M1 TP (19:20)
[2018-11-29] MEDS ORDERED: BACITRACIN1 EACH TOPIC (19:20)
--- NOTE | 2018-11-29 19:20 | NUR ---
NURSE NOTES: Received patient from JERICHO Min. Patient resting in semi-irizarry's position in bed, opens eyes spontaneously, non-verbal. Patient cannot make needs known. IV site checked, patent and intact, D5 1/2NS running at 100 ML/HR, no signs of erythemia, infiltration, or bleeding. G-tube flushed and patent, Glucerna 1.5 running at 50 ML/HR. Seizure precautions in use with padded siderails up x3 and suction at bedside. Bed in lowest position, brakes on, and call light within reach. Oral care rendered. Will continue with plan of care.
--- NOTE | 2018-11-29 19:45 | Consultation ---
DATE OF CONSULTATION: 11/29/2018 GASTROENTEROLOGY CONSULTATION CONSULTING PHYSICIAN: Chava Appiah M.D. CHIEF COMPLAINT: I was asked to see this patient by Dr. Sanjiv Love for evaluation of gastrostomy tube dislodgement and chronic constipation. HISTORY OF PRESENT ILLNESS: The patient is an unfortunate 83-year-old man with advanced dementia from a residential who comes in due to dislodged gastrostomy tract. The patient's gastrostomy tube fell out and it was temporarily resecured, but not used. The patient himself is unable to provide any history. Most of the information is only available from the chart. The patient also has had a history of constipation and some abdominal distention on a long-term basis. He is bed-bound with very limited mobility. He has had distant past history of colonoscopy, but not for many years. PAST MEDICAL HISTORY: History of dementia, seizures, diabetes, hyperlipidemia, gastrointestinal bleeding, dysphagia, gastrostomy tube placement, constipation, Alzheimer disease, gastroesophageal reflux disease, pneumonia. FAMILY HISTORY: Noncontributory. SOCIAL HISTORY: The patient is . His lives in the area. His daughter looks after his affairs. He is in a residential. ALLERGIES: None. REVIEW OF SYSTEMS: Otherwise unobtainable. PHYSICAL EXAMINATION: GENERAL: Debilitated, demented man, seen in his bed. HEENT: Normocephalic and atraumatic. Poor dentition. NECK: Supple, but the patient is uncooperative. CHEST: Clear to auscultation. CARDIOVASCULAR: Revealed a regular rate. ABDOMEN: Distended, obese, soft. Gastrostomy tube was identified and removed and replaced at bedside with a standard 20-Slovenian gastrostomy replacement catheter. Balloon was inflated and verified. EXTREMITIES: Revealed contracture deformities. NEUROLOGIC: Notable for bedbound state and contractures. LABORATORY DATA: Noted. ASSESSMENT: This patient presents with chronic constipation and some [id number] abdominal distention, which maybe due to constipation. I would give laxative to clear out his bowel and also for long-term bowel regimen. His thyroid functions and electrolytes should also be checked if they have not be checked recently. The patient also has a new gastrostomy catheter and feeding can be resumed. I have reviewed gastrostomy care instructions with the nursing staff and we will follow through with these instructions. RECOMMENDATIONS: Per above discussion and per orders in the chart. Thank you for asking me to participate in the care of this patient. Chava Appiah M.D. DR: MISAEL JOB#: [id number] CC: DAVID
[2018-11-29 20:00] VITALS: BP 139/70
[2018-11-29] MEDS: Miralax 17gm pkt GT SCH (20:10)
--- NOTE | 2018-11-29 20:31 | General Progress Note ---
Assessment/Plan Status: doing well Assessment/Plan: This is an 83-year-old male admitted with seizure activity, urinary tract infection, possible left lower lobe pneumonia, and dislodged G-tube. The patient will be admitted to telemetry floor with the following medical problems, 1. Seizure activity, new-onset. We will get neurology consult and MRI of the brain. EEG will be ordered by Neurology. Continue with Keppra 500 mg twice a day via G-tube. We will get Ativan 1 mg as needed seizure. Seizure precautions. Aspiration precautions. 2. Urinary tract infection, on Rocephin. Follow up on urine cultures. We will get Infectious Disease consult. 3. Hypertension, poorly controlled. We will increase carvedilol to 25 mg b.i.d. and continue with other current blood pressure medications. 4. Dislodged G-tube. We will get the GI consult. We will hold the G-tube feeds until GI determines when to start feeds. 5. Possible left lower lobe pneumonia. Continue with IV antibiotics. ID is consulted. 6. Continue supportive care. 7. History of chronic constipation. Continue bowel regimen with MiraLax and Colace. 8. Diabetes mellitus. We will place the patient on insulin sliding scale and continue Januvia. Diabetic diet will be started when cleared by GI. 9. VT prophylaxis with heparin subcutaneous 5000 every 8 hours. 10. The patient is Full Code per POLST. Plan: - appricate consultants fu - continue tube feeding - antibiotics for uti - neurlogy consult pending - mri neg - rotated q 2 hours to avoid ulcer(dw nurse) - VTE prophylaxis dw nurse and daughter Subjective Date patient seen: Nov 29, 2018 ROS Limited/Unobtainable: Yes Allergies: Coded Allergies: NO KNOWN DRUG ALLERGIES (Unverified Allergy, Unknown, 05/24/15) Objective Last 24 Hour Vital Signs Date Time Temp Pulse Resp B/P (MAP) Pulse Ox O2 Delivery O2 Flow Rate FiO2 11/29/18 16:00 66 11/29/18 16:00 97.8 66 22 130/72 (91) 96 11/29/18 12:00 65 11/29/18 12:00 97.9 66 22 145/88 (107) 94 11/29/18 09:11 126/76 11/29/18 09:11 60 126/76 11/29/18 09:00 Room Air 11/29/18 08:00 98.2 60 23 126/76 (93) 96 11/29/18 08:00 71 11/29/18 07:41 78 20 99 Room Air 21 74 20 97 11/29/18 04:00 97.8 71 18 142/80 (100) 98 11/29/18 04:00 70 11/29/18 01:17 83 18 100 Room Air 21 83 16 98 11/29/18 00:00 73 11/29/18 00:00 97.9 74 16 148/72 (97) 93 11/28/18 21:26 75 141/78 11/28/18 21:00 Room Air Intake and Output 11/28/18 11/29/18 19:00 07:00 Intake Total 1025 ml Balance 1025 ml Intake IV Total 1025 ml # Voids 2 3 # Bowel Movements 1 4 Laboratory Tests 11/29/18 05:37: White Blood Count 7.9, Red Blood Count 3.82L, Hemoglobin 10.8L, Hematocrit 33.5L , Mean Corpuscular Volume 88, Mean Corpuscular Hemoglobin 28.4, Mean Corpuscular Hemoglobin Concent 32.3, Red Cell Distribution Width 14.0, Platelet Count 235, Mean Platelet Volume 6.8, Neutrophils (%) (Auto) 67.5, Lymphocytes (% ) (Auto) 21.6, Monocytes (%) (Auto) 7.1, Eosinophils (%) (Auto) 3.1H, Basophils (%) (Auto) 0.7, Sodium Level 144, Potassium Level 3.7, Chloride Level 109H, Carbon Dioxide Level 27, Anion Gap 8, Blood Urea Nitrogen 16, Creatinine 0.8, Estimat Glomerular Filtration Rate , Glucose Level 254H, Hemoglobin A1c 6.6H, Calcium Level 8.9, Total Bilirubin 0.8, Aspartate Amino Transf (AST/SGOT) 15, Alanine Aminotransferase (ALT/SGPT) 10L, Alkaline Phosphatase 103, Total Protein 7.1, Albumin 2.7L, Globulin 4.4, Albumin/Globulin Ratio 0.6L, Triglycerides Level 102, Cholesterol Level 124, LDL Cholesterol 65, HDL Cholesterol 42, Cholesterol/HDL Ratio 3.0L, Vitamin D 25-Hydroxy [Pending], 25- Hydroxy Vitamin D2 [Pending], 25-Hydroxy Vitamin D3 [Pending], Thyroid Stimulating Hormone (TSH) 2.266 Height (Feet): 5 Height (Inches): 8.00 Weight (Pounds): 174 General Appearance: no apparent distress, alert EENT: PERRL/EOMI, pharynx normal Neck: non-tender, supple Cardiovascular: normal rate, regular rhythm, no gallop/murmur, no JVD Respiratory/Chest: chest wall non-tender, normal breath sounds, no respiratory distress Abdomen: non tender, soft, no mass Extremities: non-tender, normal inspection, no calf tenderness Edema: no edema noted Arm (L), no edema noted Arm (R), no edema noted Leg (L), no edema noted Leg (R), no edema noted Pedal (L), no edema noted Pedal (R), no edema noted Generalized Neurologic: responsive Skin: warm/dry Lymphatic: normal anterior cervical (L), normal anterior cervical (R), normal posterior cervical (L), normal posterior cervical (R), normal submandibular (L) , normal submandibular (R), normal supraclavicular (L), normal supraclavicular ( R), normal axillary (L), normal axillary (R), normal inguinal (L), normal inguinal (R), normal other SHARLENE SCHILLING Nov 29, 2018 20:31
--- NOTE | 2018-11-29 21:00 | NUR ---
NURSE NOTES: Checked G-tube residual, 140 mL drawn. Held feeding at this time. Will continue to monitor.
[2018-11-29] MEDS: Montelukast 10mg tablet GT SCH (21:09)
[2018-11-29] MEDS: Atorvastatin 20mg tab GT SCH (21:10)
[2018-11-29] MEDS: Levemir Flexpen SUBQ SCH (21:12)
--- NOTE | 2018-11-29 23:45 | Consultation ---
DATE OF CONSULTATION: 11/29/2018 CARDIAC ELECTROPHYSIOLOGY CONSULTATION CONSULTING PHYSICIAN: Dago Womack M.D. REFERRING PHYSICIAN: Sanjiv Love M.D. REASON FOR CONSULTATION: First-degree AV block and hypertension. HISTORY OF PRESENT ILLNESS: The patient is an 83-year-old nonverbal [place]i gentleman with history of advanced dementia, dysphagia, status post G-tube placement, was transferred for possible seizure and G-tube dislodgement. The patient is also noted to have urinary tract infection and retrocardiac infiltrate and left-sided effusion. The patient was admitted and started on IV antibiotic. A Cardiology consultation was obtained for further evaluation. At the time of my evaluation, the patient is nonverbal and is not able to provide any information. REVIEW OF SYSTEMS: Cannot be obtained. PAST MEDICAL HISTORY: Include hypertension, diabetes, hyperlipidemia, seizure disorder, osteoarthritis, dysphagia, status post PEG placement, bed-bound, fdc resident, osteoarthritis, anemia, and chronic constipation. PHYSICAL EXAMINATION: VITAL SIGNS: Show blood pressure of 145/88, pulse is 66, respiration is 22, and he is afebrile. HEAD AND NECK: Showed no JVD. LUNGS: Clear. CARDIOVASCULAR: Shows regular S1 and S2 with no gallop or murmur. ABDOMEN: Soft. Status post G-tube. EXTREMITIES: No pitting edema. LABORATORY AND DIAGNOSTIC DATA: His EKG shows sinus rhythm with first-degree AV block and nonspecific T-wave abnormalities. Labs show white count of 7.9, hematocrit 10.8, hematocrit 33.5, and platelet count of 235,000. Sodium 144, potassium 3.7, BUN of 16, creatinine 0.8, and glucose of 254. Troponin is negative. ASSESSMENT AND PLAN: 1. First-degree AV block. The patient has not had any advanced heart block. We will watch the patient on telemetry. The patient will be on Coreg 25 mg b.i.d. 2. Hypertension. On Coreg 25 b.i.d., losartan 100 mg daily, and Lasix 20 mg per G-tube Tuesday, Tuesday, and Tuesday. 3. Dysphagia, status post PEG placement and dislodged. Further evaluation by GI. 4. Hyperlipidemia. On Lipitor. 5. Diabetes. 6. Dementia, nonverbal. Thank you very much for allowing me to participate in the care of this patient. Please do not hesitate to contact me for any questions regarding my evaluation. Dago Womack M.D. DR: BRUCE JOB#: [id number] CC:
[2018-11-30] VITALS: BP 135/68
[2018-11-30] MEDS: Artificial Tears 1.4% Op Soln BOTH EYES SCH ×5 (00:24→23:26)
--- NOTE | 2018-11-30 00:29 | NUR ---
NURSE NOTES: Rechecked G-tube residual, no residual noted. Restarted Glucerna 1.5 tube feeding at 10 mL/hr for goal of 50 mL/hr. Will continue to monitor.
--- NOTE | 2018-11-30 03:12 | NUR ---
NURSE NOTES: Patient is asleep, lying comfortably in bed. No signs of distress or pain noted. Bed is in lowest position, brakes on, call light within reach.
[2018-11-30] MEDS: D5 1/2NS 1,000 ML IV SCH ×3 (03:33→23:21)
[2018-11-30 04:00] VITALS: BP 138/65
--- NOTE | 2018-11-30 05:56 | NUR ---
NURSE NOTES: Notified Dr. Appiah regarding patient having residual of 140 mls x1 last night and to clarify if patient should be on q6hr accuchecks instead of AC+HS. Awaiting callback for any further orders.
--- NOTE | 2018-11-30 06:09 | NUR ---
NURSE NOTES: Received new orders from Dr. Appiah. Noted and carried out.
[2018-11-30] MEDS: NovoLOG Insulin Flexpen SUBQ SCH ×4 (06:14→23:34)
--- NOTE | 2018-11-30 07:21 | NUR ---
HAND-OFF: Report given to JERICHO Justin. Patient is asleep, lying semi-irizarry, resting comfortably. Glucerna 1.5 running at 10 mL/hr for a goal of 50 mL/hr. Oral care rendered. Patient is in stable condition.
[2018-11-30 07:31] LABS: BASOPHILS % (AUTO) 0.7 % (0.0-2.0); EOSINOPHILS % (AUTO) 5.2 % (0.0-3.0); HEMATOCRIT 33.2 % (42.0-52.0); HEMOGLOBIN 10.9 G/DL (14.2-18.0); LYMPHOCYTES % (AUTO) 29.6 % (20.0-45.0); MEAN CORPUSCULAR VOLUME 88 FL (80-99); MONOCYTES % (AUTO) 8.1 % (1.0-10.0); NEUTROPHILS % (AUTO) 56.4 % (45.0-75.0); PLATELET COUNT 232 K/UL (150-450); RED BLOOD COUNT 3.76 M/UL (4.70-6.10); RED CELL DISTRIBUTION WIDTH 13.5 % (11.6-14.8); WHITE BLOOD COUNT 6.5 K/UL (4.8-10.8)
[2018-11-30 07:41] LABS: ANION GAP 10 mmol/L (5-15); BLOOD UREA NITROGEN 12 mg/dL (7-18); CALCIUM 8.6 MG/DL (8.5-10.1); CARBON DIOXIDE 26 MMOL/L (21-32); CHLORIDE 110 MMOL/L (98-107); CREATININE 0.9 MG/DL (0.55-1.30); POTASSIUM 3.5 MMOL/L (3.5-5.1); SODIUM 146 MMOL/L (136-145)
--- NOTE | 2018-11-30 07:55 | NUR ---
NURSE NOTES: Received report from JERICHO Rain. Observed patient in bed, asleep, opens eyes to verbal stimuli, nonverbal. On room air, no respiratory distress noted. GT intact and patent with infusing feeding at 10ml/hr, HOB elevated. IV site intact and patent with infusing fluids at prescribed rate. No s/s of pain/discomfort at this time. Safety precautions in place, bed locked, alarmed, and in lowest position, padded side rails up x3, call light left within reach. All needs attended to including oral care. Will continue with plan of care and monitor patient.
[2018-11-30 08:00] VITALS: BP 156/86
[2018-11-30] MEDS: Aspirin Baby 81mg GT SCH (08:23)
[2018-11-30] MEDS: Simethicone 80mg tab GT SCH (08:23)
[2018-11-30] MEDS: Magnesium Oxide 400mg tab GT SCH (08:24)
[2018-11-30] MEDS: Carvedilol 25mg Tab GT SCH ×2 (08:24→21:34)
[2018-11-30] MEDS: Docusate 100mg/10ml Liq GT SCH ×2 (08:25→17:33)
[2018-11-30] MEDS: Losartan 50mg tab GT SCH (08:25)
[2018-11-30] MEDS: Heparin 5000 units/ml inj SUBQ SCH ×2 (08:27→21:37)
--- NOTE | 2018-11-30 09:19 | Pulmonology Progress Note ---
Assessment/Plan Assessment/Plan Pulmonary Progress Note HPI: The patient is an 83-year-old nonverbal senior living resident with history of dysphagia status post G-tube, transferred for possible seizure and G-tube dislodgement, noted to have urinary tract infection as well as a possible retrocardiac infiltrate and left-sided effusion. The patient here in the hospital has been afebrile with stable vital signs, saturating well on room air. Unable to provide any history himself. Per the nurse, no cough, no wheezing, no hemoptysis. No fevers. No chills. He is currently on Rocephin alone, presumably for urinary tract infection and has been started on [id number] DuoNebs. He also gets Lasix per his G-tube and is on heparin subcutaneous for DVT prophylaxis. I actually had seen this patient here previously in 2016 when he was admitted with GI bleed at the time. There was concern for respiratory distress, but he had no active respiratory issues. He has been on Singulair and Flonase for allergic rhinitis. PAST MEDICAL HISTORY: 1. [facility] resident. 2. Bedbound. 3. Dysphagia, status post G-tube. 4. Dementia. 5. Hypertension. 6. Hyperlipidemia. 7. Diabetes. 8. Seizure disorder. 9. Osteoarthritis. 10. Anemia. 11. Allergic rhinitis. 12. Chronic constipation. ALLERGIES: No known drug allergies. PHYSICAL EXAMINATION: VITAL SIGNS NOTED: GENERAL: He is a demented, nonverbal male, in no acute distress. HEENT: Normocephalic, atraumatic. Oropharynx is clear. Moist mucous membranes. NECK: Supple without lymphadenopathy. CHEST: Clear. No wheezing, rales, or rhonchi. HEART: Regular rate and rhythm. ABDOMEN: Soft, nontender, and nondistended. G-tube clean, dry, and intact. EXTREMITIES: No cyanosis, clubbing, or edema. Labs noted: White count 7.9, hemoglobin 10.8, and platelet count 235,000. Sodium 144, potassium 3.7, chloride 109, bicarb 27, BUN 15, creatinine 0.8, glucose 254. Hemoglobin A1c 6.6. Calcium 8.9. Total bilirubin 0.8, AST 15, ALT 10, and alkaline phosphatase 103. Total protein 7.1, albumin 2.7, globulin 4.4. Triglycerides 102, cholesterol 124, LDL 65, and HDL 42. TSH 2.56. Urinalysis, 2+ protein, 1+ blood, positive nitrites, 3+ leukocyte esterase, and 20 to 30 whites. Urine culture, gram-negative bacilli. IMAGING: KUB showed contrast is extravasating into the G-tube. Chest x-ray Opacification of the left hemidiaphragm. ASSESSMENT: The patient is an 83-year-old male senior living resident, nonverbal at baseline with dementia, dysphagia, status post G-tube, seizure disorder, hypertension, hyperlipidemia, allergic rhinitis, and diabetes, presenting with dislodged G-tube and concern for possible pneumonia. I have reviewed imaging myself. He has some opacification of the left hemidiaphragm, may represent a small pleural effusion, possibly dependent versus atelectasis at the left base. I doubt he is infected. He is afebrile, has normal white count. In terms of working up his pleural effusion and parenchymal abnormalities, this has to be reviewed in light of the overall goals of care in this nonverbal senior living resident. I reviewed his prior imaging at [facility], including most recently where he had a small left-sided pleural effusion. At this time, I think a less aggressive approach would be favorable. PROBLEM LIST: 1. Left lung opacification of the hemidiaphragm, possible atelectasis versus early infiltrate versus small effusion, no sign of a respiratory infection clinically. 2. Dislodged G-tube. 3. History of seizure disorder with questionable seizure. 4. [facility] resident. 5. Dementia. 6. Nonverbal at baseline. 7. Dysphagia, status post G-tube. 8. Hypertension, hyperlipidemia, diabetes, anemia, allergic rhinitis. TREATMENT PLAN: 1. Optimize pulmonary hygiene/mobilize as tolerated. 2. P.r.n. O2. 3. I will change the bronchodilators to p.r.n. 4. Consider observation off antibiotics. 5. If any sign of a respiratory infection, would then start coverage to include healthcare-associated pathogens. 6. GI evaluation of G-tube. 7. Monitor for further seizures. The patient is on Keppra and per report neurology evaluation is underway. 8. Monitor volumes and renal function. 9. DVT prophylaxis, heparin subcutaneous twice a day. 10. The patient is a Full Code, would discuss goals of care further with the family. 11. Continue Flonase for allergic rhinitis and Singulair. Subjective ROS Limited/Unobtainable: No Allergies: Coded Allergies: NO KNOWN DRUG ALLERGIES (Unverified Allergy, Unknown, 05/24/15) Objective Last 24 Hour Vital Signs Date Time Temp Pulse Resp B/P (MAP) Pulse Ox O2 Delivery O2 Flow Rate FiO2 11/30/18 09:06 72 20 96 Room Air 21 11/30/18 08:25 156/86 11/30/18 08:24 76 156/86 11/30/18 08:00 98.2 76 20 156/86 (109) 97 11/30/18 04:00 98.5 73 18 138/65 (89) 94 11/30/18 04:00 69 11/30/18 00:00 72 11/30/18 00:00 98.5 72 18 135/68 (90) 94 11/29/18 21:09 70 139/70 11/29/18 21:00 72 11/29/18 21:00 Room Air 11/29/18 20:00 99.3 70 18 139/70 (93) 96 11/29/18 16:00 66 11/29/18 16:00 97.8 66 22 130/72 (91) 96 11/29/18 12:00 65 11/29/18 12:00 97.9 66 22 145/88 (107) 94 Intake and Output 11/29/18 11/30/18 19:00 07:00 Intake Total 200 ml 1345 ml Output Total 2 ml Balance 198 ml 1345 ml Intake Free Water 30 ml IV Total 100 ml 1145 ml Tube Feeding 100 ml 170 ml Output Stool Total 2 ml # Voids 2 2 # Bowel Movements 1 3 Microbiology Date/Time Source Procedure Growth Status 11/28/18 10:20 Urine,Clean Catch Urine Culture - Preliminary Gram Negative Bacillus 1 Resulted 11/28/18 11:20 Rectum VRE Culture - Final Enterococcus Faecalis - Vre Complete Laboratory Tests 11/30/18 05:37: White Blood Count 6.5, Red Blood Count 3.76L, Hemoglobin 10.9L, Hematocrit 33.2L , Mean Corpuscular Volume 88, Mean Corpuscular Hemoglobin 29.0, Mean Corpuscular Hemoglobin Concent 32.8, Red Cell Distribution Width 13.5, Platelet Count 232, Mean Platelet Volume 6.5, Neutrophils (%) (Auto) 56.4, Lymphocytes (% ) (Auto) 29.6, Monocytes (%) (Auto) 8.1, Eosinophils (%) (Auto) 5.2H, Basophils (%) (Auto) 0.7, Sodium Level 146H, Potassium Level 3.5, Chloride Level 110H, Carbon Dioxide Level 26, Anion Gap 10, Blood Urea Nitrogen 12, Creatinine 0.9, Estimat Glomerular Filtration Rate , Glucose Level 239H, Calcium Level 8.6, Troponin I 0.000, Pro-B-Type Natriuretic Peptide 289H, Thyroid Stimulating Hormone (TSH) 1.931, Free Thyroxine 1.22 Current Medications Medications (Trade) Dose Ordered Sig/Annmarie Route PRN Reason Start Time Stop Time Status Last Admin Dose Admin Albuterol/ Ipratropium (Albuterol/ Ipratropium) 3 ml Q4HRT PRN HHN SOB and wheezing 11/29/18 11:45 12/04/18 00:59 Artificial Tears (Akwa-Tears) 2 drop Q6HR BOTH EYES 11/28/18 18:00 12/28/18 17:59 11/30/18 06:13 Aspirin (ASA) 81 mg DAILY GT 11/29/18 09:00 12/29/18 08:59 11/30/18 08:23 Atorvastatin Calcium (Lipitor) 40 mg BEDTIME GT 11/28/18 21:00 12/28/18 20:59 11/29/18 21:10 Carvedilol (Coreg) 25 mg Q12HR GT 11/28/18 21:00 12/28/18 20:59 11/30/18 08:24 Ceftriaxone Sodium 1 gm/ Dextrose 55 ml @ 110 mls/hr DAILY IVPB 11/29/18 09:00 12/06/18 08:59 11/29/18 09:14 Clonidine HCl (Catapres Tab) 0.1 mg Q12H PRN GT SBP>160 11/28/18 17:30 12/28/18 17:29 Dextrose (Dextrose 50%) 25 ml Q30M PRN IV Hypoglycemia 11/28/18 17:00 12/28/18 16:59 Dextrose (Dextrose 50%) 50 ml Q30M PRN IV Hypoglycemia 11/28/18 17:00 12/28/18 16:59 Dextrose/Sodium Chloride 1,000 ml @ 100 mls/hr Q10H IV 11/28/18 21:30 12/28/18 21:29 11/30/18 03:33 Docusate Sodium (Colace) 100 mg TWICE A DAY GT 11/28/18 18:00 12/28/18 17:59 11/30/18 08:25 Famotidine (Pepcid) 20 mg DAILY ORAL 11/29/18 09:00 12/29/18 08:59 11/30/18 08:24 Finasteride (Proscar) 5 mg DAILY ORAL 11/29/18 09:00 12/29/18 08:59 11/30/18 08:34 Fluticasone Propionate (Flonase) 1 spray Q12HR NASAL 11/28/18 21:00 12/28/18 20:59 11/29/18 21:11 Furosemide (Lasix) 20 mg TUE-TUE-TUE GT 11/29/18 21:00 12/29/18 20:59 11/29/18 21:09 Heparin Sodium (Porcine) (Heparin 5000 units/ml) 5,000 units Q12HR SUBQ 11/29/18 21:00 12/29/18 20:59 11/30/18 08:27 Insulin Aspart (NovoLOG) Q6HR SUBQ 11/30/18 12:00 12/30/18 11:59 Insulin Detemir (Levemir) 25 units BEDTIME SUBQ 11/28/18 21:00 12/28/18 20:59 11/29/18 21:12 Lactulose (Cephulac) 30 gm BID GT 11/28/18 18:00 12/28/18 17:59 11/29/18 17:37 Levetiracetam (Keppra) 500 mg Q12HR GT 11/28/18 21:00 12/28/18 20:59 11/30/18 08:25 Lorazepam (Ativan 2mg/ml 1ml) 1 mg Q30M PRN IV For Seizures 11/28/18 17:30 12/05/18 17:29 Losartan Potassium (Cozaar) 100 mg DAILY GT 11/29/18 09:00 12/29/18 08:59 11/30/18 08:25 Magnesium Oxide (Mag-Ox 400mg) 400 mg DAILY GT 11/29/18 09:00 12/29/18 08:59 11/30/18 08:24 Montelukast Sodium (Singulair) 10 mg BEDTIME GT 11/28/18 21:00 12/28/18 20:59 11/29/18 21:09 Polyethylene Glycol (Miralax) 17 gm BEDTIME GT 11/28/18 21:00 12/28/18 20:59 Potassium Chloride (K-Dur) 20 meq DAILY GT 11/29/18 09:00 12/29/18 08:59 11/30/18 08:28 Simethicone (Mylicon) 120 mg DAILY GT 11/29/18 09:00 12/29/18 08:59 11/30/18 08:23 Sitagliptin Phosphate (Januvia) 100 mg DAILY GT 11/29/18 09:00 12/29/18 08:59 11/30/18 08:25 Maximo Mistry MD Nov 30, 2018 09:19
[2018-11-30] MEDS: cefTRIAXone 1 GM in D5W 55 ML IVPB SCH (09:25)
[2018-11-30] MEDS: Lactulose 20gm/30ml UDC GT SCH ×2 (09:38→17:33)
[2018-11-30] MEDS ORDERED: NS 275ml ONE (10:24)
[2018-11-30] MEDS ORDERED: Tubing IV Secondary IV ONE (10:24)
[2018-11-30] MEDS ORDERED: D5 1/2NS 1000ml IV ONE (10:24)
[2018-11-30] MEDS: Flonase Nasal Inhaler 16gm NASAL SCH ×2 (10:25→21:35)
[2018-11-30 12:00] VITALS: BP 109/71
--- NOTE | 2018-11-30 13:11 | General Progress Note ---
Assessment/Plan Status: doing well Assessment/Plan: Assessment - dysphagia / GT dependent - constipation - OBS - contractures - poor prognosis Recommendations - bowel regimen - continue TF - monitor residuals - elevate HOB Subjective Allergies: Coded Allergies: NO KNOWN DRUG ALLERGIES (Unverified Allergy, Unknown, 05/24/15) Subjective Above noted d/w RN high residuals noted last PM back on feeds, at lower rate (+) BM Objective Last 24 Hour Vital Signs Date Time Temp Pulse Resp B/P (MAP) Pulse Ox O2 Delivery O2 Flow Rate FiO2 11/30/18 12:00 97.5 65 18 109/71 (84) 97 11/30/18 09:06 72 20 96 Room Air 21 11/30/18 09:00 Room Air 11/30/18 08:25 156/86 11/30/18 08:24 76 156/86 11/30/18 08:00 98.2 76 20 156/86 (109) 97 11/30/18 07:47 72 11/30/18 04:00 98.5 73 18 138/65 (89) 94 11/30/18 04:00 69 11/30/18 00:00 72 11/30/18 00:00 98.5 72 18 135/68 (90) 94 11/29/18 21:09 70 139/70 11/29/18 21:00 72 11/29/18 21:00 Room Air 11/29/18 20:00 99.3 70 18 139/70 (93) 96 11/29/18 16:00 66 11/29/18 16:00 97.8 66 22 130/72 (91) 96 Intake and Output 11/29/18 11/30/18 19:00 07:00 Intake Total 200 ml 1345 ml Output Total 2 ml Balance 198 ml 1345 ml Intake Free Water 30 ml IV Total 100 ml 1145 ml Tube Feeding 100 ml 170 ml Output Stool Total 2 ml # Voids 2 2 # Bowel Movements 1 3 Laboratory Tests 11/30/18 05:37: White Blood Count 6.5, Red Blood Count 3.76L, Hemoglobin 10.9L, Hematocrit 33.2L , Mean Corpuscular Volume 88, Mean Corpuscular Hemoglobin 29.0, Mean Corpuscular Hemoglobin Concent 32.8, Red Cell Distribution Width 13.5, Platelet Count 232, Mean Platelet Volume 6.5, Neutrophils (%) (Auto) 56.4, Lymphocytes (% ) (Auto) 29.6, Monocytes (%) (Auto) 8.1, Eosinophils (%) (Auto) 5.2H, Basophils (%) (Auto) 0.7, Sodium Level 146H, Potassium Level 3.5, Chloride Level 110H, Carbon Dioxide Level 26, Anion Gap 10, Blood Urea Nitrogen 12, Creatinine 0.9, Estimat Glomerular Filtration Rate , Glucose Level 239H, Calcium Level 8.6, Troponin I 0.000, Pro-B-Type Natriuretic Peptide 289H, Thyroid Stimulating Hormone (TSH) 1.931, Free Thyroxine 1.22 Height (Feet): 5 Height (Inches): 8.00 Weight (Pounds): 174 Objective Obtunded NCAT supple CTA RR abd distended, soft, (+) GT contracted Chava Appiah MD Nov 30, 2018 13:10
[2018-11-30 16:00] VITALS: BP 150/76
--- NOTE | 2018-11-30 17:45 | NUR ---
NURSE NOTES: PAT noted by monitor technician, Alex. Dr Womack at bedside, informed and made aware. No new orders at this time. Will continue to monitor.
--- NOTE | 2018-11-30 17:49 | Cardiac Electrophysiology PN ---
Assessment/Plan Assessment/Plan 1. First-degree AV block. The patient has not had any advanced heart block. The patient will be on Coreg 25 mg b.i.d. 2. Hypertension. On Coreg 25 b.i.d., losartan 100 mg daily, and Lasix 3. Transient SVT. Nonsustained on Coreg 20 mg per G-tube Tuesday, Tuesday, and Tuesday. 4. Dysphagia, status post PEG placement . Further evaluation by GI. 5. Hyperlipidemia. On Lipitor. 6. Diabetes. 7. Dementia, nonverbal. Subjective Subjective Had short run of SVT that self terminated. Objective Last 24 Hour Vital Signs Date Time Temp Pulse Resp B/P (MAP) Pulse Ox O2 Delivery O2 Flow Rate FiO2 11/30/18 16:00 98.2 70 20 150/76 (100) 98 11/30/18 15:24 71 11/30/18 12:16 63 11/30/18 12:00 97.5 65 18 109/71 (84) 97 11/30/18 09:06 72 20 96 Room Air 21 11/30/18 09:00 Room Air 11/30/18 08:25 156/86 11/30/18 08:24 76 156/86 11/30/18 08:00 98.2 76 20 156/86 (109) 97 11/30/18 07:47 72 11/30/18 04:00 98.5 73 18 138/65 (89) 94 11/30/18 04:00 69 11/30/18 00:00 72 11/30/18 00:00 98.5 72 18 135/68 (90) 94 11/29/18 21:09 70 139/70 11/29/18 21:00 72 11/29/18 21:00 Room Air 11/29/18 20:00 99.3 70 18 139/70 (93) 96 Intake and Output 11/29/18 11/30/18 19:00 07:00 Intake Total 200 ml 1345 ml Output Total 2 ml Balance 198 ml 1345 ml Intake Free Water 30 ml IV Total 100 ml 1145 ml Tube Feeding 100 ml 170 ml Output Stool Total 2 ml # Voids 2 2 # Bowel Movements 1 3 Laboratory Tests Test 11/30/18 05:37 White Blood Count 6.5 K/UL (4.8-10.8) Red Blood Count 3.76 M/UL (4.70-6.10) L Hemoglobin 10.9 G/DL (14.2-18.0) L Hematocrit 33.2 % (42.0-52.0) L Mean Corpuscular Volume 88 FL (80-99) Mean Corpuscular Hemoglobin 29.0 PG (27.0-31.0) Mean Corpuscular Hemoglobin Concent 32.8 G/DL (32.0-36.0) Red Cell Distribution Width 13.5 % (11.6-14.8) Platelet Count 232 K/UL (150-450) Mean Platelet Volume 6.5 FL (6.5-10.1) Neutrophils (%) (Auto) 56.4 % (45.0-75.0) Lymphocytes (%) (Auto) 29.6 % (20.0-45.0) Monocytes (%) (Auto) 8.1 % (1.0-10.0) Eosinophils (%) (Auto) 5.2 % (0.0-3.0) H Basophils (%) (Auto) 0.7 % (0.0-2.0) Sodium Level 146 MMOL/L (136-145) H Potassium Level 3.5 MMOL/L (3.5-5.1) Chloride Level 110 MMOL/L (98-107) H Carbon Dioxide Level 26 MMOL/L (21-32) Anion Gap 10 mmol/L (5-15) Blood Urea Nitrogen 12 mg/dL (7-18) Creatinine 0.9 MG/DL (0.55-1.30) Estimat Glomerular Filtration Rate mL/min (>60) Glucose Level 239 MG/DL (74-106) H Calcium Level 8.6 MG/DL (8.5-10.1) Troponin I 0.000 ng/mL (0.000-0.056) Pro-B-Type Natriuretic Peptide 289 pg/mL (0-125) H Thyroid Stimulating Hormone (TSH) 1.931 uiU/mL (0.358-3.740) Free Thyroxine 1.22 NG/DL (0.76-1.46) Microbiology Date/Time Source Procedure Growth Status 11/28/18 11:20 Nasal Nares MRSA Culture - Final NO METHICILLIN RESISTANT STAPH AUREUS... Complete 11/28/18 10:20 Urine,Clean Catch Urine Culture - Final Escherichia Coli Complete 11/28/18 11:20 Rectum VRE Culture - Final Enterococcus Faecalis - Vre Complete Objective HEAD AND NECK: No JVD. LUNGS: Clear. CARDIOVASCULAR: Regular S1 and S2 with no gallop or murmur. ABDOMEN: Soft. Status post G-tube. EXTREMITIES: No pitting edema. Dago Womack MD Nov 30, 2018 17:49
--- NOTE | 2018-11-30 19:19 | NUR ---
HAND-OFF: Report given to Erik Aldridge RN. Patient in stable condition.
--- NOTE | 2018-11-30 19:22 | NUR ---
NURSE NOTES: Received report from Pardeep Keller RN. Patient in bed AAO X1 with no S/S of discomfort or distress noted. Kept clean, dry, and comfortable in bed. Patient is bedbound with external catheter placed for incontinence. IV line intact and patent with continuous cardiac monitoring per protocol. On GTF with prescribed formula as ordered, no A/R observed. Safety precaution in place; siderails X3 up and padded, call light within reach, bed in lowest position and free from clutter, brakes and alarm on at all times, and suction equipment available at bedside. Needs and wants anticipated and attended. Will continue plan of care and monitor for any changes noted.
[2018-11-30 20:00] VITALS: BP 152/83
--- NOTE | 2018-11-30 20:52 | General Progress Note ---
Assessment/Plan Status: doing well, progressing Assessment/Plan: This is an 83-year-old male admitted with seizure activity, urinary tract infection, possible left lower lobe pneumonia, and dislodged G-tube. The patient will be admitted to telemetry floor with the following medical problems, 1. Seizure activity, new-onset. We will get neurology consult and MRI of the brain. EEG will be ordered by Neurology. Continue with Keppra 500 mg twice a day via G-tube. We will get Ativan 1 mg as needed seizure. Seizure precautions. Aspiration precautions. 2. Urinary tract infection, on Rocephin. Follow up on urine cultures. We will get Infectious Disease consult. 3. Hypertension, poorly controlled. We will increase carvedilol to 25 mg b.i.d. and continue with other current blood pressure medications. 4. Dislodged G-tube. We will get the GI consult. We will hold the G-tube feeds until GI determines when to start feeds. 5. Possible left lower lobe pneumonia. Continue with IV antibiotics. ID is consulted. 6. Continue supportive care. 7. History of chronic constipation. Continue bowel regimen with MiraLax and Colace. 8. Diabetes mellitus. We will place the patient on insulin sliding scale and continue Januvia. Diabetic diet will be started when cleared by GI. 9. VT prophylaxis with heparin subcutaneous 5000 every 8 hours. 10. The patient is Full Code per POLST. 11. E coli uti Plan: - appricate consultants fu - continue tube feeding - continue rocephin 1 g iv change to g tube Bactrim when dc - neurlogy consult pending - mri neg - rotated q 2 hours to avoid ulcer(lucas nurse) - VTE prophylaxis - neurology consult pending lucas nurse and daughter Subjective Date patient seen: Nov 30, 2018 Allergies: Coded Allergies: NO KNOWN DRUG ALLERGIES (Unverified Allergy, Unknown, 05/24/15) Objective Last 24 Hour Vital Signs Date Time Temp Pulse Resp B/P (MAP) Pulse Ox O2 Delivery O2 Flow Rate FiO2 11/30/18 20:08 70 18 97 Room Air 21 11/30/18 18:00 Room Air 11/30/18 16:00 98.2 70 20 150/76 (100) 98 11/30/18 15:24 71 11/30/18 12:16 63 11/30/18 12:00 97.5 65 18 109/71 (84) 97 11/30/18 09:06 72 20 96 Room Air 21 11/30/18 09:00 Room Air 11/30/18 08:25 156/86 11/30/18 08:24 76 156/86 11/30/18 08:00 98.2 76 20 156/86 (109) 97 11/30/18 07:47 72 11/30/18 04:00 98.5 73 18 138/65 (89) 94 11/30/18 04:00 69 11/30/18 00:00 72 11/30/18 00:00 98.5 72 18 135/68 (90) 94 11/29/18 21:09 70 139/70 11/29/18 21:00 72 11/29/18 21:00 Room Air Intake and Output 11/29/18 11/30/18 19:00 07:00 Intake Total 200 ml 1345 ml Output Total 2 ml Balance 198 ml 1345 ml Intake Free Water 30 ml IV Total 100 ml 1145 ml Tube Feeding 100 ml 170 ml Stool Total 2 ml # Voids 2 2 # Bowel Movements 1 3 Laboratory Tests 11/30/18 05:37: White Blood Count 6.5, Red Blood Count 3.76L, Hemoglobin 10.9L, Hematocrit 33.2L , Mean Corpuscular Volume 88, Mean Corpuscular Hemoglobin 29.0, Mean Corpuscular Hemoglobin Concent 32.8, Red Cell Distribution Width 13.5, Platelet Count 232, Mean Platelet Volume 6.5, Neutrophils (%) (Auto) 56.4, Lymphocytes (% ) (Auto) 29.6, Monocytes (%) (Auto) 8.1, Eosinophils (%) (Auto) 5.2H, Basophils (%) (Auto) 0.7, Sodium Level 146H, Potassium Level 3.5, Chloride Level 110H, Carbon Dioxide Level 26, Anion Gap 10, Blood Urea Nitrogen 12, Creatinine 0.9, Estimat Glomerular Filtration Rate , Glucose Level 239H, Calcium Level 8.6, Troponin I 0.000, Pro-B-Type Natriuretic Peptide 289H, Thyroid Stimulating Hormone (TSH) 1.931, Free Thyroxine 1.22 Height (Feet): 5 Height (Inches): 8.00 Weight (Pounds): 174 General Appearance: no apparent distress, alert EENT: PERRL/EOMI, pharynx normal Neck: non-tender, supple Cardiovascular: normal rate, regular rhythm, no gallop/murmur, no JVD Respiratory/Chest: chest wall non-tender, normal breath sounds, no respiratory distress Abdomen: non tender, soft, no mass Extremities: non-tender, normal inspection, no calf tenderness Edema: 1+ Arm (L), 1+ Arm (R); no edema noted Leg (L), no edema noted Leg (R), no edema noted Pedal (L), no edema noted Pedal (R), no edema noted Generalized Neurologic: responsive Lymphatic: normal anterior cervical (L), normal anterior cervical (R), normal posterior cervical (L), normal posterior cervical (R), normal submandibular (L) , normal submandibular (R), normal supraclavicular (L), normal supraclavicular ( R), normal axillary (L), normal axillary (R), normal inguinal (L), normal inguinal (R), normal other SHARLENE SCHILLING Nov 30, 2018 20:52
[2018-11-30] MEDS: Miralax 17gm pkt GT SCH (21:00)
[2018-11-30] MEDS: Montelukast 10mg tablet GT SCH (21:35)
[2018-11-30] MEDS: Atorvastatin 20mg tab GT SCH (21:35)
[2018-11-30] MEDS: Levemir Flexpen SUBQ SCH (21:37)
[2018-12-01] VITALS: BP 141/79
--- NOTE | 2018-12-01 01:00 | NUR ---
NURSE NOTES: Patient in bed asleep with no S/S of distress. Will continue to monitor
[2018-12-01 04:00] VITALS: BP 144/82
[2018-12-01] MEDS: Artificial Tears 1.4% Op Soln BOTH EYES SCH ×4 (05:16→23:14)
[2018-12-01] MEDS: NovoLOG Insulin Flexpen SUBQ SCH ×4 (05:17→23:15)
--- NOTE | 2018-12-01 07:06 | NUR ---
HAND-OFF: Report given to She Keller RN. Patient in bed asleep with no S/S of distress. Endorsed plan of care.
--- NOTE | 2018-12-01 07:07 | NUR ---
NURSE NOTES: Received report from Erik Aldridge RN. Observed patient in bed, asleep, opens eyes to touch, non verbal. On room air, no respiratory distress noted at this time. IV on left hand intact and patent with IV fluids infusing at prescribed rate. GT intact and patent, feeding infusing at prescribed rate, tolerating well. HOB elevated. External catheter intact and draining well to gravity. No s/s of pain/discomfort at this time. All needs attended to. Safety precautions in place, bed locked alarmed, and in lowest position, padded side rails up x2, and call light within reach. Will continue to monitor patient.
--- NOTE | 2018-12-01 07:09 | Cardiac Electrophysiology PN ---
Assessment/Plan Assessment/Plan 1. First-degree AV block. The patient has not had any advanced heart block. On Coreg 25 mg b.i.d. 2. Hypertension. On Coreg 25 b.i.d., losartan 100 mg daily, and Lasix 3. Transient SVT. Nonsustained on Coreg 20 mg per G-tube Tuesday, Tuesday, and Tuesday. 4. Dysphagia, status post PEG placement . Further evaluation by GI. 5. Hyperlipidemia. On Lipitor. 6. Diabetes. 7. Dementia, nonverbal. 8. UTI oniv abx DW RN Subjective Subjective In SR overnight. No events Objective Last 24 Hour Vital Signs Date Time Temp Pulse Resp B/P (MAP) Pulse Ox O2 Delivery O2 Flow Rate FiO2 12/01/18 04:00 65 12/01/18 04:00 98.0 69 18 144/82 (102) 98 12/01/18 00:00 69 12/01/18 00:00 98.8 70 19 141/79 (99) 96 11/30/18 21:34 74 152/83 11/30/18 21:00 Room Air 11/30/18 20:08 70 18 97 Room Air 21 11/30/18 20:00 69 11/30/18 20:00 97.7 74 18 152/83 (106) 96 11/30/18 18:00 Room Air 11/30/18 16:00 98.2 70 20 150/76 (100) 98 11/30/18 15:24 71 11/30/18 12:16 63 11/30/18 12:00 97.5 65 18 109/71 (84) 97 11/30/18 09:06 72 20 96 Room Air 21 11/30/18 09:00 Room Air 11/30/18 08:25 156/86 11/30/18 08:24 76 156/86 11/30/18 08:00 98.2 76 20 156/86 (109) 97 11/30/18 07:47 72 Intake and Output 11/30/18 12/01/18 18:59 06:59 Intake Total 1595 ml 545 ml Output Total 300 ml 450 ml Balance 1295 ml 95 ml Intake Free Water 100 ml IV Total 1205 ml 100 ml Tube Feeding 290 ml 445 ml Output Urine Total 300 ml 450 ml # Voids 2 # Bowel Movements 4 2 Laboratory Tests Test 12/01/18 05:40 Sodium Level Pending Potassium Level Pending Chloride Level Pending Carbon Dioxide Level Pending Blood Urea Nitrogen Pending Creatinine Pending Estimat Glomerular Filtration Rate Pending Glucose Level Pending Calcium Level Pending Microbiology Date/Time Source Procedure Growth Status 11/28/18 11:20 Nasal Nares MRSA Culture - Final NO METHICILLIN RESISTANT STAPH AUREUS... Complete 11/28/18 10:20 Urine,Clean Catch Urine Culture - Final Escherichia Coli Complete 11/28/18 11:20 Rectum VRE Culture - Final Enterococcus Faecalis - Vre Complete Objective HEAD AND NECK: No JVD. LUNGS: Clear. CARDIOVASCULAR: Regular S1 and S2 with no gallop or murmur. ABDOMEN: Soft. Status post G-tube. EXTREMITIES: No pitting edema. Dago Womack MD Dec 01, 2018 07:09
[2018-12-01 07:24] LABS: ANION GAP 10 mmol/L (5-15); BLOOD UREA NITROGEN 10 mg/dL (7-18); CALCIUM 8.2 MG/DL (8.5-10.1); CARBON DIOXIDE 25 MMOL/L (21-32); CHLORIDE 109 MMOL/L (98-107); CREATININE 0.8 MG/DL (0.55-1.30); POTASSIUM 3.6 MMOL/L (3.5-5.1); SODIUM 143 MMOL/L (136-145)
[2018-12-01 08:00] VITALS: BP 156/82
[2018-12-01] MEDS: Simethicone 80mg tab GT SCH (08:30)
[2018-12-01] MEDS: Lactulose 20gm/30ml UDC GT SCH ×2 (08:30→17:44)
[2018-12-01] MEDS: Docusate 100mg/10ml Liq GT SCH ×2 (08:30→17:44)
[2018-12-01] MEDS: cefTRIAXone 1 GM in D5W 55 ML IVPB SCH (08:30)
[2018-12-01] MEDS: Aspirin Baby 81mg GT SCH (08:31)
[2018-12-01] MEDS: Losartan 50mg tab GT SCH (08:31)
[2018-12-01] MEDS: Magnesium Oxide 400mg tab GT SCH (08:31)
[2018-12-01] MEDS: Carvedilol 25mg Tab GT SCH ×2 (08:32→20:32)
[2018-12-01] MEDS: Heparin 5000 units/ml inj SUBQ SCH ×2 (08:34→20:36)
[2018-12-01] MEDS: Flonase Nasal Inhaler 16gm NASAL SCH ×2 (09:23→20:33)
[2018-12-01] MEDS: D5 1/2NS 1,000 ML IV SCH ×2 (09:25→19:37)
--- NOTE | 2018-12-01 10:32 | NUR ---
RD ASSESSMENT & RECOMMENDATIONS SEE CARE ACTIVITY FOR COMPLETE ASSESSMENT DAILY ESTIMATED NEEDS: Needs based on bed bound, DM, wound, 72kg adj 23-28 kcals/kg 3537-9635 total kcals 1.25-1.5 g protein/kg 90-108 g total protein 25-30 mL/kg 1675-6817 total fluid mLs NUTRITION DIAGNOSIS: 1)Increased kcal and protein needs R/T wound healing AEB pt w/ sacral wound, partial thickness per documentation. 2) Swallowing difficulty R/T dysphagia AEB pt w/ PEG feedings 3) Altered nutrition related lab values R/T diabetes AEB elev BG (157-154), A1C 6.6 CURRENT TF:Glucerna 1.5 @50 ml ENTERAL NUTRITION RECOMMENDATIONS: Glucerna 1.5 @50ml/hr x 24 hrs to provide 1200ml, 1800 kcal, 99g pro, 911ml free H2O - As medically able, rec to initiate Glucerna 1.5 @30ml/hr for 6 hrs. - Advance 10ml/hr q4-6 hrs as tolerated to goal - Flush per MD/ HOB over 30 degrees --- With continued elev BG may lower goal rate to 46ml/hr to provide 1104ml, 1656 kcal, 91g pro, 838ml free H2O. To meet 100% est needs. ADDITIONAL RECOMMENDATIONS: 1) Add JG BID for wound care 2) Add NISS w/ tube feedings 3) Obtain a calibrated bed scale wt for accurate CBW 4) Monitor lytes daily on lasix/ replete as needed
[2018-12-01 12:00] VITALS: BP 109/66
--- NOTE | 2018-12-01 14:14 | General Progress Note ---
Assessment/Plan Status: doing well, progressing Assessment/Plan: Assessment - dysphagia / GT dependent - constipation - OBS - contractures - poor prognosis Recommendations - bowel regimen - continue TF - monitor residuals - elevate HOB - I will return to see pt Mon Subjective Allergies: Coded Allergies: NO KNOWN DRUG ALLERGIES (Unverified Allergy, Unknown, 05/24/15) Subjective Above noted d/w RN tolerating TF (+) BM Objective Last 24 Hour Vital Signs Date Time Temp Pulse Resp B/P (MAP) Pulse Ox O2 Delivery O2 Flow Rate FiO2 12/01/18 13:00 Room Air 12/01/18 12:00 97.3 60 20 109/66 (80) 96 12/01/18 11:51 61 12/01/18 09:00 Room Air 12/01/18 08:35 87 20 96 Room Air 21 12/01/18 08:32 65 156/82 12/01/18 08:31 156/82 12/01/18 08:00 97.8 68 20 156/82 (106) 98 12/01/18 07:36 64 12/01/18 04:00 65 12/01/18 04:00 98.0 69 18 144/82 (102) 98 12/01/18 00:00 69 12/01/18 00:00 98.8 70 19 141/79 (99) 96 11/30/18 21:34 74 152/83 11/30/18 21:00 Room Air 11/30/18 20:08 70 18 97 Room Air 21 11/30/18 20:00 69 11/30/18 20:00 97.7 74 18 152/83 (106) 96 11/30/18 18:00 Room Air 11/30/18 16:00 98.2 70 20 150/76 (100) 98 11/30/18 15:24 71 Intake and Output 11/30/18 12/01/18 19:00 07:00 Intake Total 1585 ml 495 ml Output Total 300 ml 450 ml Balance 1285 ml 45 ml Intake Free Water 100 ml IV Total 1205 ml Tube Feeding 280 ml 495 ml Output Urine Total 300 ml 450 ml # Voids 2 # Bowel Movements 4 2 Laboratory Tests 12/01/18 05:40: Sodium Level 143, Potassium Level 3.6, Chloride Level 109H, Carbon Dioxide Level 25, Anion Gap 10, Blood Urea Nitrogen 10, Creatinine 0.8, Estimat Glomerular Filtration Rate , Glucose Level 160H, Calcium Level 8.2L Height (Feet): 5 Height (Inches): 8.00 Weight (Pounds): 174 Objective Obtunded NCAT supple CTA RR abd distended, soft, (+) GT contracted Chava Appiah MD Dec 01, 2018 14:14
--- NOTE | 2018-12-01 14:58 | Pulmonology Progress Note ---
Assessment/Plan Assessment/Plan Pulmonary Progress Note HPI: The patient is an 83-year-old nonverbal [facility] resident with history of dysphagia status post G-tube, transferred for possible seizure and G-tube dislodgement, noted to have urinary tract infection as well as a possible retrocardiac infiltrate and left-sided effusion. The patient here in the hospital has been afebrile with stable vital signs, saturating well on room air. Unable to provide any history himself. Per the nurse, no cough, no wheezing, no hemoptysis. No fevers. No chills. He is currently on Rocephin alone, presumably for urinary tract infection and has been started on [id number] DuoNebs. He also gets Lasix per his G-tube and is on heparin subcutaneous for DVT prophylaxis. I actually had seen this patient here previously in 2016 when he was admitted with GI bleed at the time. There was concern for respiratory distress, but he had no active respiratory issues. He has been on Singulair and Flonase for allergic rhinitis. PAST MEDICAL HISTORY: 1. penitentiary resident. 2. Bedbound. 3. Dysphagia, status post G-tube. 4. Dementia. 5. Hypertension. 6. Hyperlipidemia. 7. Diabetes. 8. Seizure disorder. 9. Osteoarthritis. 10. Anemia. 11. Allergic rhinitis. 12. Chronic constipation. ALLERGIES: No known drug allergies. PHYSICAL EXAMINATION: VITAL SIGNS NOTED: GENERAL: He is a demented, nonverbal male, in no acute distress. HEENT: Normocephalic, atraumatic. Oropharynx is clear. Moist mucous membranes. NECK: Supple without lymphadenopathy. CHEST: Clear. No wheezing, rales, or rhonchi. HEART: Regular rate and rhythm. ABDOMEN: Soft, nontender, and nondistended. G-tube clean, dry, and intact. EXTREMITIES: No cyanosis, clubbing, or edema. Labs noted: White count 7.9, hemoglobin 10.8, and platelet count 235,000. Sodium 144, potassium 3.7, chloride 109, bicarb 27, BUN 15, creatinine 0.8, glucose 254. Hemoglobin A1c 6.6. Calcium 8.9. Total bilirubin 0.8, AST 15, ALT 10, and alkaline phosphatase 103. Total protein 7.1, albumin 2.7, globulin 4.4. Triglycerides 102, cholesterol 124, LDL 65, and HDL 42. TSH 2.56. Urinalysis, 2+ protein, 1+ blood, positive nitrites, 3+ leukocyte esterase, and 20 to 30 whites. Urine culture, gram-negative bacilli. IMAGING: KUB showed contrast is extravasating into the G-tube. Chest x-ray Opacification of the left hemidiaphragm. ASSESSMENT: The patient is an 83-year-old male [facility] resident, nonverbal at baseline with dementia, dysphagia, status post G-tube, seizure disorder, hypertension, hyperlipidemia, allergic rhinitis, and diabetes, presenting with dislodged G-tube and concern for possible pneumonia. I have reviewed imaging myself. He has some opacification of the left hemidiaphragm, may represent a small pleural effusion, possibly dependent versus atelectasis at the left base. I doubt he is infected. He is afebrile, has normal white count. In terms of working up his pleural effusion and parenchymal abnormalities, this has to be reviewed in light of the overall goals of care in this nonverbal [facility] resident. I reviewed his prior imaging at [facility], including most recently where he had a small left-sided pleural effusion. At this time, I think a less aggressive approach would be favorable. PROBLEM LIST: 1. Left lung opacification of the hemidiaphragm, possible atelectasis versus early infiltrate versus small effusion, no sign of a respiratory infection clinically. 2. Dislodged G-tube. 3. History of seizure disorder with questionable seizure. 4. penitentiary resident. 5. Dementia. 6. Nonverbal at baseline. 7. Dysphagia, status post G-tube. 8. Hypertension, hyperlipidemia, diabetes, anemia, allergic rhinitis. TREATMENT PLAN: 1. Optimize pulmonary hygiene/mobilize as tolerated. 2. P.r.n. O2. 3. I will change the bronchodilators to p.r.n. 4. Consider observation off antibiotics. 5. If any sign of a respiratory infection, would then start coverage to include healthcare-associated pathogens. 6. GI evaluation of G-tube. 7. Monitor for further seizures. The patient is on Keppra and per report neurology evaluation is underway. 8. Monitor volumes and renal function. 9. DVT prophylaxis, heparin subcutaneous twice a day. 10. The patient is a Full Code, would discuss goals of care further with the family. 11. Continue Flonase for allergic rhinitis and Singulair. Subjective ROS Limited/Unobtainable: No Allergies: Coded Allergies: NO KNOWN DRUG ALLERGIES (Unverified Allergy, Unknown, 05/24/15) Objective Last 24 Hour Vital Signs Date Time Temp Pulse Resp B/P (MAP) Pulse Ox O2 Delivery O2 Flow Rate FiO2 12/01/18 13:00 Room Air 12/01/18 12:00 97.3 60 20 109/66 (80) 96 12/01/18 11:51 61 12/01/18 09:00 Room Air 12/01/18 08:35 87 20 96 Room Air 21 12/01/18 08:32 65 156/82 12/01/18 08:31 156/82 12/01/18 08:00 97.8 68 20 156/82 (106) 98 12/01/18 07:36 64 12/01/18 04:00 65 12/01/18 04:00 98.0 69 18 144/82 (102) 98 12/01/18 00:00 69 12/01/18 00:00 98.8 70 19 141/79 (99) 96 11/30/18 21:34 74 152/83 11/30/18 21:00 Room Air 11/30/18 20:08 70 18 97 Room Air 21 11/30/18 20:00 69 11/30/18 20:00 97.7 74 18 152/83 (106) 96 11/30/18 18:00 Room Air 11/30/18 16:00 98.2 70 20 150/76 (100) 98 11/30/18 15:24 71 Intake and Output 11/30/18 12/01/18 19:00 07:00 Intake Total 1585 ml 495 ml Output Total 300 ml 450 ml Balance 1285 ml 45 ml Intake Free Water 100 ml IV Total 1205 ml Tube Feeding 280 ml 495 ml Output Urine Total 300 ml 450 ml # Voids 2 # Bowel Movements 4 2 Laboratory Tests 12/01/18 05:40: Sodium Level 143, Potassium Level 3.6, Chloride Level 109H, Carbon Dioxide Level 25, Anion Gap 10, Blood Urea Nitrogen 10, Creatinine 0.8, Estimat Glomerular Filtration Rate , Glucose Level 160H, Calcium Level 8.2L Current Medications Medications (Trade) Dose Ordered Sig/Annmarie Route PRN Reason Start Time Stop Time Status Last Admin Dose Admin Albuterol/ Ipratropium (Albuterol/ Ipratropium) 3 ml Q4HRT PRN HHN SOB and wheezing 11/29/18 11:45 12/04/18 00:59 Artificial Tears (Akwa-Tears) 2 drop Q6HR BOTH EYES 11/28/18 18:00 12/28/18 17:59 12/01/18 12:43 Aspirin (ASA) 81 mg DAILY GT 11/29/18 09:00 12/29/18 08:59 12/01/18 08:31 Atorvastatin Calcium (Lipitor) 40 mg BEDTIME GT 11/28/18 21:00 12/28/18 20:59 11/30/18 21:35 Carvedilol (Coreg) 25 mg Q12HR GT 11/28/18 21:00 12/28/18 20:59 12/01/18 08:32 Ceftriaxone Sodium 1 gm/ Dextrose 55 ml @ 110 mls/hr DAILY IVPB 11/29/18 09:00 12/06/18 08:59 12/01/18 08:30 Clonidine HCl (Catapres Tab) 0.1 mg Q12H PRN GT SBP>160 11/28/18 17:30 12/28/18 17:29 Dextrose (Dextrose 50%) 25 ml Q30M PRN IV Hypoglycemia 11/28/18 17:00 12/28/18 16:59 Dextrose (Dextrose 50%) 50 ml Q30M PRN IV Hypoglycemia 11/28/18 17:00 12/28/18 16:59 Dextrose/Sodium Chloride 1,000 ml @ 100 mls/hr Q10H IV 11/28/18 21:30 12/28/18 21:29 12/01/18 09:25 Docusate Sodium (Colace) 100 mg TWICE A DAY GT 11/28/18 18:00 12/28/18 17:59 12/01/18 08:30 Famotidine (Pepcid) 20 mg DAILY ORAL 11/29/18 09:00 12/29/18 08:59 12/01/18 08:32 Finasteride (Proscar) 5 mg DAILY ORAL 11/29/18 09:00 12/29/18 08:59 12/01/18 08:31 Fluticasone Propionate (Flonase) 1 spray Q12HR NASAL 11/28/18 21:00 12/28/18 20:59 12/01/18 09:23 Furosemide (Lasix) 20 mg MON-WED-FRI GT 11/29/18 21:00 12/29/18 20:59 11/29/18 21:09 Heparin Sodium (Porcine) (Heparin 5000 units/ml) 5,000 units Q12HR SUBQ 11/29/18 21:00 12/29/18 20:59 12/01/18 08:34 Insulin Aspart (NovoLOG) Q6HR SUBQ 11/30/18 12:00 12/30/18 11:59 12/01/18 11:43 Insulin Detemir (Levemir) 25 units BEDTIME SUBQ 11/28/18 21:00 12/28/18 20:59 11/30/18 21:37 Lactulose (Cephulac) 30 gm BID GT 11/28/18 18:00 12/28/18 17:59 12/01/18 08:30 Levetiracetam (Keppra) 500 mg Q12HR GT 11/28/18 21:00 12/28/18 20:59 12/01/18 08:35 Lorazepam (Ativan 2mg/ml 1ml) 1 mg Q30M PRN IV For Seizures 11/28/18 17:30 12/05/18 17:29 Losartan Potassium (Cozaar) 100 mg DAILY GT 11/29/18 09:00 12/29/18 08:59 12/01/18 08:31 Magnesium Oxide (Mag-Ox 400mg) 400 mg DAILY GT 11/29/18 09:00 12/29/18 08:59 12/01/18 08:31 Montelukast Sodium (Singulair) 10 mg BEDTIME GT 11/28/18 21:00 12/28/18 20:59 11/30/18 21:35 Polyethylene Glycol (Miralax) 17 gm BEDTIME GT 11/28/18 21:00 12/28/18 20:59 Potassium Chloride (K-Dur) 20 meq DAILY GT 11/29/18 09:00 12/29/18 08:59 12/01/18 08:32 Simethicone (Mylicon) 120 mg DAILY GT 11/29/18 09:00 12/29/18 08:59 12/01/18 08:30 Sitagliptin Phosphate (Januvia) 100 mg DAILY GT 11/29/18 09:00 12/29/18 08:59 12/01/18 08:31 Maximo Mistry MD Dec 01, 2018 14:58
[2018-12-01] MEDS ORDERED: D5 1/2NS 1000ml IV ONE (15:48)
[2018-12-01 16:00] VITALS: BP 120/97
--- NOTE | 2018-12-01 16:01 | NUR ---
CASE MANAGEMENT:REVIEW 12/01/18 SI: PNEUMONIA 97.3 60 20 109/66 96% ON RA IS: IV ROCEPHIN QD IVF@100/HR SS INSULIN SQ Q6HRS LASIX GT MWF HEPARIN SQ Q12 ASA PO QD PROSCAR PO QD JANUVIA GT QD COZAAR GT QD KEPPRA GT Q12 COREG GT Q12 : TELEMETRY STATUS DCP: [facility]
--- NOTE | 2018-12-01 18:59 | NUR ---
HAND-OFF: Report given to JERICHO Valdez. All needs attended to; oral care rendered. Patient in stable condition. Endorsed plan of care.
--- NOTE | 2018-12-01 19:05 | NUR ---
NURSE NOTES: Report received from JERICHO Justin. Observed pt lying in the bed, sleeping, arousable. SR with 1AVB on endoscopy tech. On Room air with no sob. GT running Glucerna 1.5 at 50cc/hr, no residual noted. IV on L H 22G, running D5 1/2 at 100cc/hr. Bed in the lowest position. Side rails padded and up x2. Will continue to monitor.
--- NOTE | 2018-12-01 19:25 | General Progress Note ---
Assessment/Plan Status: doing well, progressing Assessment/Plan: This is an 83-year-old male admitted with seizure activity, urinary tract infection, possible left lower lobe pneumonia, and dislodged G-tube. The patient will be admitted to telemetry floor with the following medical problems, 1. Seizure activity, new-onset. We will get neurology consult and MRI of the brain. EEG will be ordered by Neurology. Continue with Keppra 500 mg twice a day via G-tube. We will get Ativan 1 mg as needed seizure. Seizure precautions. Aspiration precautions. 2. Urinary tract infection, on Rocephin. Follow up on urine cultures. We will get Infectious Disease consult. 3. Hypertension, poorly controlled. We will increase carvedilol to 25 mg b.i.d. and continue with other current blood pressure medications. 4. Dislodged G-tube. We will get the GI consult. We will hold the G-tube feeds until GI determines when to start feeds. 5. Possible left lower lobe pneumonia. Continue with IV antibiotics. ID is consulted. 6. Continue supportive care. 7. History of chronic constipation. Continue bowel regimen with MiraLax and Colace. 8. Diabetes mellitus. We will place the patient on insulin sliding scale and continue Januvia. Diabetic diet will be started when cleared by GI. 9. VT prophylaxis with heparin subcutaneous 5000 every 8 hours. 10. The patient is Full Code per POLST. 11. E coli uti Plan: - appricate consultants fu - continue tube feeding - continue rocephin 1 g iv change to g tube Bactrim when dc - neurlogy consult pending - mri neg - rotated q 2 hours to avoid ulcer(dw nurse) - VTE prophylaxis - will switch to g tube bactrim bid for 5 days starting tomorrow dc planining in am Subjective Date patient seen: Dec 01, 2018 ROS Limited/Unobtainable: Yes Allergies: Coded Allergies: NO KNOWN DRUG ALLERGIES (Unverified Allergy, Unknown, 05/24/15) Objective Last 24 Hour Vital Signs Date Time Temp Pulse Resp B/P (MAP) Pulse Ox O2 Delivery O2 Flow Rate FiO2 12/01/18 16:00 97.3 65 18 120/97 (105) 96 12/01/18 15:35 66 12/01/18 13:00 Room Air 12/01/18 12:00 97.3 60 20 109/66 (80) 96 12/01/18 11:51 61 12/01/18 09:00 Room Air 12/01/18 08:35 87 20 96 Room Air 21 12/01/18 08:32 65 156/82 12/01/18 08:31 156/82 12/01/18 08:00 97.8 68 20 156/82 (106) 98 12/01/18 07:36 64 12/01/18 04:00 65 12/01/18 04:00 98.0 69 18 144/82 (102) 98 12/01/18 00:00 69 12/01/18 00:00 98.8 70 19 141/79 (99) 96 11/30/18 21:34 74 152/83 11/30/18 21:00 Room Air 11/30/18 20:08 70 18 97 Room Air 21 11/30/18 20:00 69 11/30/18 20:00 97.7 74 18 152/83 (106) 96 Intake and Output 11/30/18 12/01/18 19:00 07:00 Intake Total 1585 ml 495 ml Output Total 300 ml 450 ml Balance 1285 ml 45 ml Intake Free Water 100 ml IV Total 1205 ml Tube Feeding 280 ml 495 ml Output Urine Total 300 ml 450 ml # Voids 2 # Bowel Movements 4 2 Laboratory Tests 12/01/18 05:40: Sodium Level 143, Potassium Level 3.6, Chloride Level 109H, Carbon Dioxide Level 25, Anion Gap 10, Blood Urea Nitrogen 10, Creatinine 0.8, Estimat Glomerular Filtration Rate , Glucose Level 160H, Calcium Level 8.2L Height (Feet): 5 Height (Inches): 8.00 Weight (Pounds): 174 General Appearance: no apparent distress, alert EENT: PERRL/EOMI, pharynx normal Neck: non-tender, supple Cardiovascular: normal rate, regular rhythm, no gallop/murmur, no JVD Respiratory/Chest: chest wall non-tender, normal breath sounds, no respiratory distress Abdomen: non tender, soft, no mass Extremities: non-tender, normal inspection, no calf tenderness Edema: no edema noted Arm (L), no edema noted Arm (R), no edema noted Leg (L), no edema noted Leg (R), no edema noted Pedal (L), no edema noted Pedal (R), no edema noted Generalized Neurologic: responsive Skin: warm/dry Lymphatic: normal anterior cervical (L), normal anterior cervical (R), normal posterior cervical (L), normal posterior cervical (R), normal submandibular (L) , normal submandibular (R), normal supraclavicular (L), normal supraclavicular ( R), normal axillary (L), normal axillary (R), normal inguinal (L), normal inguinal (R), normal other SHARLENE SCHILLING Dec 01, 2018 19:25
[2018-12-01 20:00] VITALS: BP 145/88
[2018-12-01] MEDS: Montelukast 10mg tablet GT SCH (20:32)
[2018-12-01] MEDS: Atorvastatin 20mg tab GT SCH (20:33)
[2018-12-01] MEDS: Miralax 17gm pkt GT SCH (20:33)
[2018-12-01] MEDS: Levemir Flexpen SUBQ SCH (20:36)
[2018-12-02] VITALS (8 sets, daily range): BP systolic 106–179; BP diastolic 53–107
--- NOTE | 2018-12-02 | NUR ---
NURSE NOTES: Gtube residual of 15 noted. Feeding on 50cc/hr.
--- NOTE | 2018-12-02 00:40 | NUR ---
NURSE NOTES: BP of 171/84 noted. PRN bp med given. pt appears to be calm and sleeping. Will continue to monitor.
--- NOTE | 2018-12-02 03:44 | NUR ---
NURSE NOTES: G tube residual of 80cc noted. going to hold feeding for 2 hour per MD order. Will continue to monitor.
[2018-12-02] MEDS: Artificial Tears 1.4% Op Soln BOTH EYES SCH ×4 (05:34→23:46)
[2018-12-02] MEDS: D5 1/2NS 1,000 ML IV SCH ×3 (05:35→23:44)
[2018-12-02] MEDS: NovoLOG Insulin Flexpen SUBQ SCH ×4 (05:36→23:52)
--- NOTE | 2018-12-02 07:36 | NUR ---
HAND-OFF: Report given to JERICHO Keenan.
--- NOTE | 2018-12-02 07:48 | General Progress Note ---
Assessment/Plan Status: doing well, progressing Assessment/Plan: Assessment - dysphagia / GT dependent - constipation - OBS - contractures - poor prognosis Recommendations - bowel regimen - continue TF - monitor residuals - elevate HOB Subjective ROS Limited/Unobtainable: No Allergies: Coded Allergies: NO KNOWN DRUG ALLERGIES (Unverified Allergy, Unknown, 05/24/15) Objective Last 24 Hour Vital Signs Date Time Temp Pulse Resp B/P (MAP) Pulse Ox O2 Delivery O2 Flow Rate FiO2 12/02/18 07:40 Room Air 12/02/18 04:00 98.5 61 20 152/64 (93) 97 12/02/18 04:00 58 12/02/18 00:36 171/84 12/02/18 00:00 97.5 66 20 171/84 (113) 98 12/02/18 00:00 67 12/01/18 21:00 Room Air 12/01/18 20:32 66 145/88 12/01/18 20:00 66 12/01/18 20:00 97.5 66 20 145/88 (107) 97 12/01/18 19:45 65 18 96 Room Air 21 12/01/18 16:00 97.3 65 18 120/97 (105) 96 12/01/18 15:35 66 12/01/18 13:00 Room Air 12/01/18 12:00 97.3 60 20 109/66 (80) 96 12/01/18 11:51 61 12/01/18 09:00 Room Air 12/01/18 08:35 87 20 96 Room Air 21 12/01/18 08:32 65 156/82 12/01/18 08:31 156/82 12/01/18 08:00 97.8 68 20 156/82 (106) 98 Intake and Output 12/01/18 12/02/18 19:00 07:00 Intake Total 1633.3333 ml 1800 ml Output Total 700 ml Balance 933.3333 ml 1800 ml Intake Free Water 120 ml 150 ml IV Total 1013.3333 ml 1200 ml Tube Feeding 500 ml 450 ml Output Urine Total 700 ml # Bowel Movements 3 Height (Feet): 5 Height (Inches): 8.00 Weight (Pounds): 174 General Appearance: no apparent distress EENT: normal ENT inspection Neck: supple Cardiovascular: normal rate Respiratory/Chest: decreased breath sounds Abdomen: normal bowel sounds, non tender, soft Extremities: non-tender Rufus Scott MD Dec 02, 2018 07:48
--- NOTE | 2018-12-02 08:26 | NUR ---
NURSE NOTES: Report from JERICHO Valdez. Found patient with tube feed held for prior resid checks in excess of 75mls (per Dr Appiah's orders). Condom cath in place draing clear yellow urine. No sign of BM currently. Repositioned patient with pillow supports and heel protectors placed now and elevated on pillow. Skin on heels appeared blanchable red. Skin on sacral area blanchable red. IVF contd per MAY. Residual check for gtube feed : found 5mls residual--restarted feeding per orders and will recheck for residual. HOB at 45degrees and insertion of gtube appears cdi with dressing in place and flushed easily with easy return of flush water. Patient appeared to be breathing easily on RA with no sign of cardiac or respiratory distress. Lungs on auscultation: slight expiratory wheeze on upper left lung, right diminished but clear sounds. Bowel sounds positive. Oral care provided. Bed in lowest , locked position and call rock in place (patient unable to use--frequent bedside checks for safety). Cont'd with plan of care. Addendum: 12/02/18 at 0957 by Will Britt RN 10am: repositioned in bed to opposite side. suctioned mucus from mouth. moistened lips and sponge with biotene /water solution. Spontaneous eye opening. no overt signs of discomfort. Spoke with Romi (daughter) on phone discussed maintaining excellent oral care and updated daughter on tube feed hold on overnite shift with restart when minimal residual found at start of this RN shift. Cont to monitor closely. Addendum: 12/02/18 at 1120 by Will Britt RN 10:00 Wound photos taken during hygiene and repositioning. Scrotum red, similar to previous photo/ slightly improved. Back redness improved. Sacral redness improved. Heels appear unchanged. GT site washed with soap./water wth 4x4 dressing changed. Triad paste to abd folds & groin, scrotum, adn buttocks cleft. Optifoam to sacral area. Cavilon on both heels with optifoam dressing. Heels offloaded with pillow. REpositioned. Addendum: 12/02/18 at 1250 by Will Britt RN 12:15 Residual checked for glucerna running at 50mls/hr. Found 25mls residual. Cont'd feeding at 50mls/hr. Will recheck at 16:30 BP 179/107 at noon; Dr Diaz notified; metal control coordinator notified--gave catapres 20minutes early (last dose given 11hr, 40min prior). Will recheck BP at 13:30 Addendum: 12/02/18 at 1317 by Will Britt RN Dr Diaz ordered an additional (once) dose of 0.1 catapres. Addendum: 12/02/18 at 1318 by Will Britt RN [address] Love who ordered 25mg hydralazine q8Hr. See RADHA. Addendum: 12/02/18 at 1435 by Will Britt RN 1430: Monitored BP closely (now 118/67). New condom cath in place now. No BM currently--patient clean and dry appears to be resting comfortably with glucerna continued to gtube. wctm Addendum: 12/02/18 at 1900 by Will Britt RN Changed condom cath again at 645pm. Patient underpad wet from voiding--hygiene provided and repositioned.
[2018-12-02] MEDS: Simethicone 80mg tab GT SCH (08:41)
[2018-12-02] MEDS: Magnesium Oxide 400mg tab GT SCH (08:41)
[2018-12-02] MEDS: Lactulose 20gm/30ml UDC GT SCH ×2 (08:41→18:00)
[2018-12-02] MEDS: Aspirin Baby 81mg GT SCH (08:42)
[2018-12-02] MEDS: Carvedilol 25mg Tab GT SCH ×2 (08:42→21:42)
[2018-12-02] MEDS: Docusate 100mg/10ml Liq GT SCH ×2 (08:42→18:02)
[2018-12-02] MEDS: Losartan 50mg tab GT SCH (08:43)
[2018-12-02] MEDS: cefTRIAXone 1 GM in D5W 55 ML IVPB SCH (08:49)
[2018-12-02] MEDS: Heparin 5000 units/ml inj SUBQ SCH ×2 (09:06→21:52)
[2018-12-02] MEDS: Flonase Nasal Inhaler 16gm NASAL SCH ×2 (09:08→21:43)
--- NOTE | 2018-12-02 09:54 | NUR ---
CASE MANAGEMENT:REVIEW 12/02/18 SI: PNEUMONIA T 96.8 HR 65 RR 20 B/P 168/72 SATS 95% ON RA NO LABS TODAY IS: IV ROCEPHIN QD IVF@100 mL/HR SS INSULIN SQ Q6HRS LASIX GT MWF HEPARIN SQ Q12 ASA PO QD PROSCAR PO QD JANUVIA GT QD COZAAR GT QD KEPPRA GT Q12 COREG GT Q12 : TELEMETRY STATUS DCP: [facility]
--- NOTE | 2018-12-02 10:05 | Cardiology Progress Note ---
Assessment/Plan Status: stable Assessment/Plan Assessment/Plan Assessment/Plan 1. First-degree AV block. The patient has not had any advanced heart block. On Coreg 25 mg b.i.d. Continue to monitor, no indication for pacemaker 2. Hypertension. On Coreg 25 b.i.d., losartan 100 mg daily, and Lasix 3. Transient SVT. Nonsustained on Coreg 20 mg per G-tube Tuesday, Tuesday, and Tuesday. 4. Dysphagia, status post PEG placement . Further evaluation by GI. 5. Hyperlipidemia. On Lipitor. 6. Diabetes. 7. Dementia, nonverbal. 8. UTI on iv abx Subjective Cardiovascular: Reports: no symptoms Respiratory: Reports: no symptoms Gastrointestinal/Abdominal: Reports: no symptoms Genitourinary: Reports: no symptoms Subjective Coverage for [place] Overnight TF held for residuals, BP elevated, no acute events, no distress on room air Objective Last 24 Hour Vital Signs Date Time Temp Pulse Resp B/P (MAP) Pulse Ox O2 Delivery O2 Flow Rate FiO2 12/02/18 08:43 168/72 12/02/18 08:42 65 168/72 12/02/18 08:00 96.8 65 20 168/72 (104) 95 12/02/18 08:00 65 12/02/18 07:40 Room Air 12/02/18 04:00 98.5 61 20 152/64 (93) 97 12/02/18 04:00 58 12/02/18 00:36 171/84 12/02/18 00:00 97.5 66 20 171/84 (113) 98 12/02/18 00:00 67 12/01/18 21:00 Room Air 12/01/18 20:32 66 145/88 12/01/18 20:00 66 12/01/18 20:00 97.5 66 20 145/88 (107) 97 12/01/18 19:45 65 18 96 Room Air 21 12/01/18 16:00 97.3 65 18 120/97 (105) 96 12/01/18 15:35 66 12/01/18 13:00 Room Air 12/01/18 12:00 97.3 60 20 109/66 (80) 96 12/01/18 11:51 61 General Appearance: no apparent distress, alert EENT: PERRL/EOMI, normal ENT inspection, TMs normal, pharynx normal Neck: non-tender, supple, normal inspection, no JVD Rhythm: NSR Cardiovascular: normal rate, regular rhythm Respiratory/Chest: chest wall non-tender, lungs clear, normal breath sounds Abdomen: normal bowel sounds, non tender Extremities: normal range of motion, non-tender, normal inspection Neurologic: cardroom plastic card grader II-XII grossly normal, no motor/sensory deficits Intake and Output 12/01/18 12/02/18 18:59 06:59 Intake Total 1533.3333 ml 1850 ml Output Total 700 ml Balance 833.3333 ml 1850 ml Intake Free Water 120 ml 150 ml IV Total 913.3333 ml 1200 ml Tube Feeding 500 ml 500 ml Output Urine Total 700 ml # Bowel Movements 3 Maximo Diaz MD Dec 02, 2018 10:05
--- NOTE | 2018-12-02 10:06 | NUR ---
DISCHARGE PLANNING: NOTE CLINICALS FAXED TO [facility] FOR REVIEW T: [phone] F: [phone] POSSIBLE DC FOR TODAY ACCORDING TO MD NOTES
[2018-12-02] MEDS ORDERED: HydrALAZINE 25mg tab ORAL SCH (14:00)
[2018-12-02] MEDS ORDERED: D5 1/2NS 1000ml IV ONE (15:56)
[2018-12-02] MEDS ORDERED: NS 275ml ONE (15:56)
[2018-12-02] MEDS: HydrALAZINE 25mg tab ORAL SCH (18:04)
--- NOTE | 2018-12-02 18:17 | Pulmonology Progress Note ---
Assessment/Plan Assessment/Plan Pulmonary Progress Note HPI: The patient is an 83-year-old nonverbal assisted resident with history of dysphagia status post G-tube, transferred for possible seizure and G-tube dislodgement, noted to have urinary tract infection as well as a possible retrocardiac infiltrate and left-sided effusion. The patient here in the hospital has been afebrile with stable vital signs, saturating well on room air. Unable to provide any history himself. Per the nurse, no cough, no wheezing, no hemoptysis. No fevers. No chills. He is currently on Rocephin alone, presumably for urinary tract infection and has been started on [id number] DuoNebs. He also gets Lasix per his G-tube and is on heparin subcutaneous for DVT prophylaxis. I actually had seen this patient here previously in 2016 when he was admitted with GI bleed at the time. There was concern for respiratory distress, but he had no active respiratory issues. He has been on Singulair and Flonase for allergic rhinitis. PAST MEDICAL HISTORY: 1. group home resident. 2. Bedbound. 3. Dysphagia, status post G-tube. 4. Dementia. 5. Hypertension. 6. Hyperlipidemia. 7. Diabetes. 8. Seizure disorder. 9. Osteoarthritis. 10. Anemia. 11. Allergic rhinitis. 12. Chronic constipation. ALLERGIES: No known drug allergies. PHYSICAL EXAMINATION: VITAL SIGNS NOTED: GENERAL: He is a demented, nonverbal male, in no acute distress. HEENT: Normocephalic, atraumatic. Oropharynx is clear. Moist mucous membranes. NECK: Supple without lymphadenopathy. CHEST: Clear. No wheezing, rales, or rhonchi. HEART: Regular rate and rhythm. ABDOMEN: Soft, nontender, and nondistended. G-tube clean, dry, and intact. EXTREMITIES: No cyanosis, clubbing, or edema. Labs noted: White count 7.9, hemoglobin 10.8, and platelet count 235,000. Sodium 144, potassium 3.7, chloride 109, bicarb 27, BUN 15, creatinine 0.8, glucose 254. Hemoglobin A1c 6.6. Calcium 8.9. Total bilirubin 0.8, AST 15, ALT 10, and alkaline phosphatase 103. Total protein 7.1, albumin 2.7, globulin 4.4. Triglycerides 102, cholesterol 124, LDL 65, and HDL 42. TSH 2.56. Urinalysis, 2+ protein, 1+ blood, positive nitrites, 3+ leukocyte esterase, and 20 to 30 whites. Urine culture, gram-negative bacilli. IMAGING: KUB showed contrast is extravasating into the G-tube. Chest x-ray Opacification of the left hemidiaphragm. ASSESSMENT: The patient is an 83-year-old male assisted resident, nonverbal at baseline with dementia, dysphagia, status post G-tube, seizure disorder, hypertension, hyperlipidemia, allergic rhinitis, and diabetes, presenting with dislodged G-tube and concern for possible pneumonia. I have reviewed imaging myself. He has some opacification of the left hemidiaphragm, may represent a small pleural effusion, possibly dependent versus atelectasis at the left base. I doubt he is infected. He is afebrile, has normal white count. In terms of working up his pleural effusion and parenchymal abnormalities, this has to be reviewed in light of the overall goals of care in this nonverbal assisted resident. I reviewed his prior imaging at [facility], including most recently where he had a small left-sided pleural effusion. At this time, I think a less aggressive approach would be favorable. PROBLEM LIST: 1. Left lung opacification of the hemidiaphragm, possible atelectasis versus early infiltrate versus small effusion, no sign of a respiratory infection clinically. 2. Dislodged G-tube. 3. History of seizure disorder with questionable seizure. 4. group home resident. 5. Dementia. 6. Nonverbal at baseline. 7. Dysphagia, status post G-tube. 8. Hypertension, hyperlipidemia, diabetes, anemia, allergic rhinitis. TREATMENT PLAN: 1. Optimize pulmonary hygiene/mobilize as tolerated. 2. P.r.n. O2. 3. I will change the bronchodilators to p.r.n. 4. Consider observation off antibiotics. 5. If any sign of a respiratory infection, would then start coverage to include healthcare-associated pathogens. 6. GI evaluation of G-tube. 7. Monitor for further seizures. The patient is on Keppra and per report neurology evaluation is underway. 8. Monitor volumes and renal function. 9. DVT prophylaxis, heparin subcutaneous twice a day. 10. The patient is a Full Code, would discuss goals of care further with the family. 11. Continue Flonase for allergic rhinitis and Singulair. Subjective ROS Limited/Unobtainable: No Allergies: Coded Allergies: NO KNOWN DRUG ALLERGIES (Unverified Allergy, Unknown, 05/24/15) Objective Last 24 Hour Vital Signs Date Time Temp Pulse Resp B/P (MAP) Pulse Ox O2 Delivery O2 Flow Rate FiO2 12/02/18 18:04 155/60 12/02/18 16:00 97.5 60 20 155/60 (91) 100 12/02/18 16:00 60 12/02/18 14:31 66 118/67 (84) 12/02/18 14:05 106/53 (70) 12/02/18 13:16 179/107 12/02/18 12:11 179/107 12/02/18 12:00 97.7 62 20 179/107 (131) 97 12/02/18 12:00 62 12/02/18 08:43 168/72 12/02/18 08:42 65 168/72 12/02/18 08:00 96.8 65 20 168/72 (104) 95 12/02/18 08:00 65 12/02/18 07:54 72 16 95 Room Air 21 12/02/18 07:40 Room Air 12/02/18 04:00 98.5 61 20 152/64 (93) 97 12/02/18 04:00 58 12/02/18 00:36 171/84 12/02/18 00:00 97.5 66 20 171/84 (113) 98 12/02/18 00:00 67 12/01/18 21:00 Room Air 12/01/18 20:32 66 145/88 12/01/18 20:00 66 12/01/18 20:00 97.5 66 20 145/88 (107) 97 12/01/18 19:45 65 18 96 Room Air 21 Intake and Output 12/01/18 12/02/18 19:00 07:00 Intake Total 1633.3333 ml 1800 ml Output Total 700 ml Balance 933.3333 ml 1800 ml Intake Free Water 120 ml 150 ml IV Total 1013.3333 ml 1200 ml Tube Feeding 500 ml 450 ml Output Urine Total 700 ml # Bowel Movements 3 Current Medications Medications (Trade) Dose Ordered Sig/Annmarie Route PRN Reason Start Time Stop Time Status Last Admin Dose Admin Albuterol/ Ipratropium (Albuterol/ Ipratropium) 3 ml Q4HRT PRN HHN SOB and wheezing 11/29/18 11:45 12/04/18 00:59 Artificial Tears (Akwa-Tears) 2 drop Q6HR BOTH EYES 11/28/18 18:00 12/28/18 17:59 12/02/18 18:05 Aspirin (ASA) 81 mg DAILY GT 11/29/18 09:00 12/29/18 08:59 12/02/18 08:42 Atorvastatin Calcium (Lipitor) 40 mg BEDTIME GT 11/28/18 21:00 12/28/18 20:59 12/01/18 20:33 Carvedilol (Coreg) 25 mg Q12HR GT 11/28/18 21:00 12/28/18 20:59 12/02/18 08:42 Ceftriaxone Sodium 1 gm/ Dextrose 55 ml @ 110 mls/hr DAILY IVPB 11/29/18 09:00 12/06/18 08:59 12/02/18 08:49 Clonidine HCl (Catapres Tab) 0.1 mg Q12H PRN GT SBP>160 11/28/18 17:30 12/28/18 17:29 12/02/18 12:11 Dextrose (Dextrose 50%) 25 ml Q30M PRN IV Hypoglycemia 11/28/18 17:00 12/28/18 16:59 Dextrose (Dextrose 50%) 50 ml Q30M PRN IV Hypoglycemia 11/28/18 17:00 12/28/18 16:59 Dextrose/Sodium Chloride 1,000 ml @ 100 mls/hr Q10H IV 11/28/18 21:30 12/28/18 21:29 12/02/18 13:42 Docusate Sodium (Colace) 100 mg TWICE A DAY GT 11/28/18 18:00 12/28/18 17:59 12/02/18 18:02 Famotidine (Pepcid) 20 mg DAILY ORAL 11/29/18 09:00 12/29/18 08:59 12/02/18 08:41 Finasteride (Proscar) 5 mg DAILY ORAL 11/29/18 09:00 12/29/18 08:59 12/02/18 08:43 Fluticasone Propionate (Flonase) 1 spray Q12HR NASAL 11/28/18 21:00 12/28/18 20:59 12/02/18 09:08 Furosemide (Lasix) 20 mg MON-WED-FRI GT 11/29/18 21:00 12/29/18 20:59 12/01/18 20:33 Heparin Sodium (Porcine) (Heparin 5000 units/ml) 5,000 units Q12HR SUBQ 11/29/18 21:00 12/29/18 20:59 12/02/18 09:06 Hydralazine HCl (Apresoline) 25 mg Q8H ORAL 12/02/18 18:00 01/01/19 17:59 12/02/18 18:04 Insulin Aspart (NovoLOG) Q6HR SUBQ 11/30/18 12:00 12/30/18 11:59 12/02/18 18:12 Insulin Detemir (Levemir) 25 units BEDTIME SUBQ 11/28/18 21:00 12/28/18 20:59 12/01/18 20:36 Lactulose (Cephulac) 30 gm BID GT 11/28/18 18:00 12/28/18 17:59 12/02/18 08:41 Levetiracetam (Keppra) 500 mg Q12HR GT 11/28/18 21:00 12/28/18 20:59 12/02/18 08:41 Lorazepam (Ativan 2mg/ml 1ml) 1 mg Q30M PRN IV For Seizures 11/28/18 17:30 12/05/18 17:29 Losartan Potassium (Cozaar) 100 mg DAILY GT 11/29/18 09:00 12/29/18 08:59 12/02/18 08:43 Magnesium Oxide (Mag-Ox 400mg) 400 mg DAILY GT 11/29/18 09:00 12/29/18 08:59 12/02/18 08:41 Montelukast Sodium (Singulair) 10 mg BEDTIME GT 11/28/18 21:00 12/28/18 20:59 12/01/18 20:32 Polyethylene Glycol (Miralax) 17 gm BEDTIME GT 11/28/18 21:00 12/28/18 20:59 Potassium Chloride (K-Dur) 20 meq DAILY GT 11/29/18 09:00 12/29/18 08:59 12/02/18 08:43 Simethicone (Mylicon) 120 mg DAILY GT 11/29/18 09:00 12/29/18 08:59 12/02/18 08:41 Sitagliptin Phosphate (Januvia) 100 mg DAILY GT 11/29/18 09:00 12/29/18 08:59 12/02/18 08:42 Maximo Mistry MD Dec 02, 2018 18:17
--- NOTE | 2018-12-02 18:39 | General Progress Note ---
Assessment/Plan Status: stable, progressing Assessment/Plan: This is an 83-year-old male admitted with seizure activity, urinary tract infection, possible left lower lobe pneumonia, and dislodged G-tube. The patient will be admitted to telemetry floor with the following medical problems, 1. Seizure activity, new-onset. We will get neurology consult and MRI of the brain. EEG will be ordered by Neurology. Continue with Keppra 500 mg twice a day via G-tube. We will get Ativan 1 mg as needed seizure. Seizure precautions. Aspiration precautions. 2. Urinary tract infection, on Rocephin. Follow up on urine cultures. We will get Infectious Disease consult. 3. Hypertension, poorly controlled. We will increase carvedilol to 25 mg b.i.d. and continue with other current blood pressure medications. 4. Dislodged G-tube. We will get the GI consult. We will hold the G-tube feeds until GI determines when to start feeds. 5. Possible left lower lobe pneumonia. Continue with IV antibiotics. ID is consulted. 6. Continue supportive care. 7. History of chronic constipation. Continue bowel regimen with MiraLax and Colace. 8. Diabetes mellitus. We will place the patient on insulin sliding scale and continue Januvia. Diabetic diet will be started when cleared by GI. 9. VT prophylaxis with heparin subcutaneous 5000 every 8 hours. 10. The patient is Full Code per POLST. 11. E coli uti Plan: - appricate consultants fu - continue tube feeding per gi - continue rocephin 1 g iv change to g tube Bactrim when dc - neurlogy consult pending - mri neg - rotated q 2 hours to avoid ulcer(dw nurse) - VTE prophylaxis - add Hydralazine 25 mg tid for better BP control hold dc until more stable Subjective Date patient seen: Dec 02, 2018 ROS Limited/Unobtainable: Yes Allergies: Coded Allergies: NO KNOWN DRUG ALLERGIES (Unverified Allergy, Unknown, 05/24/15) Subjective patient with residual greater than 75 cc and tube feeds were held, also with elevated bp 180/105 today, clonidine prn given Objective Last 24 Hour Vital Signs Date Time Temp Pulse Resp B/P (MAP) Pulse Ox O2 Delivery O2 Flow Rate FiO2 12/02/18 18:04 155/60 12/02/18 16:00 97.5 60 20 155/60 (91) 100 12/02/18 16:00 60 12/02/18 14:31 66 118/67 (84) 12/02/18 14:05 106/53 (70) 12/02/18 13:16 179/107 12/02/18 12:11 179/107 12/02/18 12:00 97.7 62 20 179/107 (131) 97 12/02/18 12:00 62 12/02/18 08:43 168/72 12/02/18 08:42 65 168/72 12/02/18 08:00 96.8 65 20 168/72 (104) 95 12/02/18 08:00 65 12/02/18 07:54 72 16 95 Room Air 21 12/02/18 07:40 Room Air 12/02/18 04:00 98.5 61 20 152/64 (93) 97 12/02/18 04:00 58 12/02/18 00:36 171/84 12/02/18 00:00 97.5 66 20 171/84 (113) 98 12/02/18 00:00 67 12/01/18 21:00 Room Air 12/01/18 20:32 66 145/88 12/01/18 20:00 66 12/01/18 20:00 97.5 66 20 145/88 (107) 97 12/01/18 19:45 65 18 96 Room Air 21 Intake and Output 12/01/18 12/02/18 19:00 07:00 Intake Total 1633.3333 ml 1800 ml Output Total 700 ml Balance 933.3333 ml 1800 ml Intake Free Water 120 ml 150 ml IV Total 1013.3333 ml 1200 ml Tube Feeding 500 ml 450 ml Output Urine Total 700 ml # Bowel Movements 3 Height (Feet): 5 Height (Inches): 8.00 Weight (Pounds): 174 General Appearance: no apparent distress, alert EENT: PERRL/EOMI, pharynx normal Neck: non-tender, supple Cardiovascular: normal rate, regular rhythm, no gallop/murmur, no JVD Respiratory/Chest: chest wall non-tender, normal breath sounds, no respiratory distress Abdomen: non tender, soft, no mass Extremities: non-tender, normal inspection, no calf tenderness Edema: no edema noted Arm (L), no edema noted Arm (R), no edema noted Leg (L), no edema noted Leg (R), no edema noted Pedal (L), no edema noted Pedal (R), no edema noted Generalized Neurologic: responsive Skin: warm/dry Lymphatic: normal anterior cervical (L), normal anterior cervical (R), normal posterior cervical (L), normal posterior cervical (R), normal submandibular (L) , normal submandibular (R), normal supraclavicular (L), normal supraclavicular ( R), normal axillary (L), normal axillary (R), normal inguinal (L), normal inguinal (R), normal other SHARLENE SCHILLING Dec 02, 2018 18:39
--- NOTE | 2018-12-02 19:30 | NUR ---
NURSE NOTES: Received patient from Shlomo ECHAVARRIA. Patient in bed, on room air, no signs of acute respiratory distress. 22 gauge iv on left hand, patent, intact, no signs of infiltration, D51/2NS infusing at 100ml/hr. 30 ml of residual from Gtube, on Glucerna 1.5 at 50ml/hr. Head of bed elevated > degrees for aspiration precautions. Bilateral lower extremities elevated, heels off loading with pillow. Bed in low position, locked, bed alarm on, call light within reach.
--- NOTE | 2018-12-02 20:15 | NUR ---
NURSE NOTES: Patient had a bowel movement, just as staff was gowned up and about to provide care, daughter arrived on unit and immediately became angry and belligerent. She started yelling loudly and requested mill house supervisor. Walked out of the room. Patient was cleaned up. Oral suctioning and oral care provided. Patient had small brown loose stool, will hold 2100 miralax. Patient repositioned.
[2018-12-02] MEDS: Miralax 17gm pkt GT SCH (21:00)
[2018-12-02] MEDS: Montelukast 10mg tablet GT SCH (21:42)
[2018-12-02] MEDS: Atorvastatin 20mg tab GT SCH (21:42)
[2018-12-02] MEDS: Levemir Flexpen SUBQ SCH (21:56)
--- NOTE | 2018-12-02 22:00 | NUR ---
NURSE NOTES: Patient had another bowel movement. Small brown loose stool. Miralax was held. Oral care given, suctioned patient's oral cavity, scant oral secretion. Repositioned patient.
[2018-12-03] VITALS (7 sets, daily range): BP systolic 108–153; BP diastolic 53–80
--- NOTE | 2018-12-03 00:10 | NUR ---
NURSE NOTES: Patient observed with mild twitching of arms spontaneously. Administered ativan 1mg ivp for possible mild seizures. Vitals within normal limits. Patient does not appear to be in any distress, no other symptoms of seizure activity observed.
--- NOTE | 2018-12-03 00:30 | NUR ---
NURSE NOTES: Patient had another bowel movement, smaller than last one, loose, brown. Oral suctioned patient, repositioned patient.
--- NOTE | 2018-12-03 02:00 | NUR ---
NURSE NOTES: Oral care provided, suctioned oral cavity, scant white oral secretions, used biotene oral rinse, moisturizer applied on lips. Repositioned patient. Patient no longer exhibiting continuous twitching after ativan administration.
[2018-12-03] MEDS: HydrALAZINE 25mg tab ORAL SCH ×3 (02:04→17:46)
--- NOTE | 2018-12-03 04:17 | NUR ---
NURSE NOTES: Patient repositioned, clean and dry, no diarrhea. Suctioned oral cavity and applied biotene oral rinse. Very minimal oral secretions. Applied lip moisturizer.
[2018-12-03] MEDS: Artificial Tears 1.4% Op Soln BOTH EYES SCH ×3 (05:06→17:44)
[2018-12-03] MEDS: NovoLOG Insulin Flexpen SUBQ SCH ×3 (05:12→17:43)
--- NOTE | 2018-12-03 06:30 | NUR ---
NURSE NOTES: Suctioned oral cavity. Applied biotene and lip moisturizer. Repositioned patient. 20ml of residual, continue gluncerna 1.5 at 50ml/hr. Gtube flushed with 60 ml H2O.
--- NOTE | 2018-12-03 06:51 | General Progress Note ---
Assessment/Plan Status: stable, progressing Assessment/Plan: Assessment - dysphagia / GT dependent - constipation - OBS - contractures - poor prognosis Recommendations - bowel regimen - continue TF - monitor residuals - elevate HOB Subjective ROS Limited/Unobtainable: No Allergies: Coded Allergies: NO KNOWN DRUG ALLERGIES (Unverified Allergy, Unknown, 05/24/15) Objective Last 24 Hour Vital Signs Date Time Temp Pulse Resp B/P (MAP) Pulse Ox O2 Delivery O2 Flow Rate FiO2 12/03/18 04:00 68 12/03/18 04:00 96.4 65 18 150/53 (85) 98 12/03/18 02:04 123/60 12/03/18 01:59 65 123/60 (81) 12/03/18 00:00 98.1 67 24 134/79 (97) 98 12/03/18 00:00 66 12/02/18 21:42 65 149/92 12/02/18 21:00 Room Air 12/02/18 20:05 65 16 96 Room Air 21 12/02/18 20:00 69 12/02/18 20:00 97.9 73 20 149/92 (111) 97 12/02/18 18:04 155/60 12/02/18 16:00 97.5 60 20 155/60 (91) 100 12/02/18 16:00 60 12/02/18 14:31 66 118/67 (84) 12/02/18 14:05 106/53 (70) 12/02/18 13:16 179/107 12/02/18 12:11 179/107 12/02/18 12:00 97.7 62 20 179/107 (131) 97 12/02/18 12:00 62 12/02/18 08:43 168/72 12/02/18 08:42 65 168/72 12/02/18 08:00 96.8 65 20 168/72 (104) 95 12/02/18 08:00 65 12/02/18 07:54 72 16 95 Room Air 21 12/02/18 07:40 Room Air Intake and Output 12/02/18 12/03/18 19:00 07:00 Intake Total 650 ml 680 ml Output Total 750 ml 150 ml Balance -100 ml 530 ml Intake Free Water 150 ml 180 ml Tube Feeding 500 ml 500 ml Output Urine Total 750 ml 150 ml # Voids 1 2 # Bowel Movements 1 3 Height (Feet): 5 Height (Inches): 8.00 Weight (Pounds): 174 General Appearance: no apparent distress EENT: normal ENT inspection Neck: supple Cardiovascular: normal rate Respiratory/Chest: decreased breath sounds Abdomen: normal bowel sounds, non tender, soft Extremities: non-tender Rufus Scott MD Dec 03, 2018 06:51
--- NOTE | 2018-12-03 07:33 | NUR ---
HAND-OFF: Report given to Moise ECHAVARRIA. Plan of care endorsed.
[2018-12-03 07:49] LABS: BASOPHILS % (AUTO) 0.6 % (0.0-2.0); EOSINOPHILS % (AUTO) 4.2 % (0.0-3.0); HEMATOCRIT 31.2 % (42.0-52.0); HEMOGLOBIN 10.3 G/DL (14.2-18.0); LYMPHOCYTES % (AUTO) 28.4 % (20.0-45.0); MEAN CORPUSCULAR VOLUME 87 FL (80-99); MONOCYTES % (AUTO) 7.6 % (1.0-10.0); NEUTROPHILS % (AUTO) 59.1 % (45.0-75.0); PLATELET COUNT 210 K/UL (150-450); RED BLOOD COUNT 3.59 M/UL (4.70-6.10); RED CELL DISTRIBUTION WIDTH 13.5 % (11.6-14.8); WHITE BLOOD COUNT 6.5 K/UL (4.8-10.8)
--- NOTE | 2018-12-03 08:00 | NUR ---
NURSE NOTES: Pt is asleep/obtunded, responds only to physical stimulus by tremor, breathing easily on room air, no FLACC evidence of any pain. Vital signs stable with Sr @ 68 on monitor. IV access left hand with D5 1/2 NS @ 100 ml/hr. G-tube in place, 5 ml residual, flush with 50 ml free water and Glu 1.5 resumed at 50 ml/hr. Bed left in low position, side rails padded and up x 2 with call light left near pt's hand
[2018-12-03 08:09] LABS: ANION GAP 7 mmol/L (5-15); BLOOD UREA NITROGEN 9 mg/dL (7-18); CALCIUM 8.6 MG/DL (8.5-10.1); CARBON DIOXIDE 29 MMOL/L (21-32); CHLORIDE 108 MMOL/L (98-107); CREATININE 0.7 MG/DL (0.55-1.30); POTASSIUM 3.3 MMOL/L (3.5-5.1); SODIUM 143 MMOL/L (136-145)
[2018-12-03] MEDS: Lactulose 20gm/30ml UDC GT SCH ×2 (09:00→17:34)
[2018-12-03] MEDS: Aspirin Baby 81mg GT SCH (09:00)
[2018-12-03] MEDS: Docusate 100mg/10ml Liq GT SCH ×2 (09:00→17:35)
[2018-12-03] MEDS: Magnesium Oxide 400mg tab GT SCH (09:25)
[2018-12-03] MEDS: Losartan 50mg tab GT SCH (09:27)
[2018-12-03] MEDS: Simethicone 80mg tab GT SCH (09:28)
[2018-12-03] MEDS: Carvedilol 25mg Tab GT SCH ×2 (09:28→21:23)
[2018-12-03] MEDS: Heparin 5000 units/ml inj SUBQ SCH ×2 (09:30→21:10)
[2018-12-03] MEDS: Flonase Nasal Inhaler 16gm NASAL SCH ×2 (09:46→21:00)
[2018-12-03] MEDS: cefTRIAXone 1 GM in D5W 55 ML IVPB SCH (09:47)
[2018-12-03] MEDS: D5 1/2NS 1,000 ML IV SCH ×2 (09:57→21:24)
--- NOTE | 2018-12-03 11:59 | Cardiology Progress Note ---
Assessment/Plan Status: stable Assessment/Plan Assessment/Plan Assessment/Plan 1. First-degree AV block. The patient has not had any advanced heart block. On Coreg 25 mg b.i.d. Continue to monitor, no indication for pacemaker 2. Hypertension. On Coreg 25 b.i.d., losartan 100 mg daily, and Lasix 3. Transient SVT. Nonsustained Continue on Coreg 4. Dysphagia, status post PEG placement . 5. Hyperlipidemia. On Lipitor. 6. Diabetes. 7. Dementia, nonverbal. 8. UTI on iv abx Subjective Cardiovascular: Reports: no symptoms Respiratory: Reports: no symptoms Gastrointestinal/Abdominal: Reports: no symptoms Genitourinary: Reports: no symptoms Subjective Coverage for [place] No acute events, patient obtunded, no fevers, BP elevated, no arrhythmias overnight Objective Last 24 Hour Vital Signs Date Time Temp Pulse Resp B/P (MAP) Pulse Ox O2 Delivery O2 Flow Rate FiO2 12/03/18 09:28 60 150/53 12/03/18 09:27 150/53 12/03/18 09:27 150/53 12/03/18 07:00 60 16 97 Room Air 21 12/03/18 04:00 68 12/03/18 04:00 96.4 65 18 150/53 (85) 98 12/03/18 02:04 123/60 12/03/18 01:59 65 123/60 (81) 12/03/18 00:00 98.1 67 24 134/79 (97) 98 12/03/18 00:00 66 12/02/18 21:42 65 149/92 12/02/18 21:00 Room Air 12/02/18 20:05 65 16 96 Room Air 21 12/02/18 20:00 69 12/02/18 20:00 97.9 73 20 149/92 (111) 97 12/02/18 18:04 155/60 12/02/18 16:00 97.5 60 20 155/60 (91) 100 12/02/18 16:00 60 12/02/18 14:31 66 118/67 (84) 12/02/18 14:05 106/53 (70) 12/02/18 13:16 179/107 12/02/18 12:11 179/107 12/02/18 12:00 97.7 62 20 179/107 (131) 97 12/02/18 12:00 62 General Appearance: no apparent distress EENT: PERRL/EOMI, normal ENT inspection, TMs normal, pharynx normal Neck: non-tender, normal alignment, supple, normal inspection Rhythm: NSR Cardiovascular: normal peripheral pulses, normal rate Respiratory/Chest: chest wall non-tender, lungs clear, normal breath sounds, no respiratory distress Abdomen: normal bowel sounds, non tender, soft, no organomegaly, no mass Extremities: normal range of motion, non-tender, normal inspection, no calf tenderness 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: 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-XII grossly normal, no motor/sensory deficits Intake and Output 12/02/18 12/03/18 19:00 07:00 Intake Total 650 ml 730 ml Output Total 750 ml 150 ml Balance -100 ml 580 ml Intake Free Water 150 ml 180 ml Tube Feeding 500 ml 550 ml Output Urine Total 750 ml 150 ml # Voids 1 3 # Bowel Movements 1 3 Laboratory Tests Test 12/03/18 06:00 White Blood Count 6.5 K/UL (4.8-10.8) Red Blood Count 3.59 M/UL (4.70-6.10) L Hemoglobin 10.3 G/DL (14.2-18.0) L Hematocrit 31.2 % (42.0-52.0) L Mean Corpuscular Volume 87 FL (80-99) Mean Corpuscular Hemoglobin 28.6 PG (27.0-31.0) Mean Corpuscular Hemoglobin Concent 32.9 G/DL (32.0-36.0) Red Cell Distribution Width 13.5 % (11.6-14.8) Platelet Count 210 K/UL (150-450) Mean Platelet Volume 6.7 FL (6.5-10.1) Neutrophils (%) (Auto) 59.1 % (45.0-75.0) Lymphocytes (%) (Auto) 28.4 % (20.0-45.0) Monocytes (%) (Auto) 7.6 % (1.0-10.0) Eosinophils (%) (Auto) 4.2 % (0.0-3.0) H Basophils (%) (Auto) 0.6 % (0.0-2.0) Sodium Level 143 MMOL/L (136-145) Potassium Level 3.3 MMOL/L (3.5-5.1) L Chloride Level 108 MMOL/L (98-107) H Carbon Dioxide Level 29 MMOL/L (21-32) Anion Gap 7 mmol/L (5-15) Blood Urea Nitrogen 9 mg/dL (7-18) Creatinine 0.7 MG/DL (0.55-1.30) Estimat Glomerular Filtration Rate mL/min (>60) Glucose Level 217 MG/DL (74-106) H Calcium Level 8.6 MG/DL (8.5-10.1) Pro-B-Type Natriuretic Peptide 759 pg/mL (0-125) H Maximo Diaz MD Dec 03, 2018 11:59
--- NOTE | 2018-12-03 12:33 | General Progress Note ---
Assessment/Plan Status: stable, progressing Assessment/Plan: This is an 83-year-old male admitted with seizure activity, urinary tract infection, possible left lower lobe pneumonia, and dislodged G-tube. The patient will be admitted to telemetry floor with the following medical problems, 1. Seizure activity, new-onset. We will get neurology consult and MRI of the brain. EEG will be ordered by Neurology. Continue with Keppra 500 mg twice a day via G-tube. We will get Ativan 1 mg as needed seizure. Seizure precautions. Aspiration precautions. 2. Urinary tract infection, on Rocephin. Follow up on urine cultures. We will get Infectious Disease consult. 3. Hypertension, poorly controlled. We will increase carvedilol to 25 mg b.i.d. and continue with other current blood pressure medications. 4. Dislodged G-tube. We will get the GI consult. We will hold the G-tube feeds until GI determines when to start feeds. 5. Possible left lower lobe pneumonia. Continue with IV antibiotics. ID is consulted. 6. Continue supportive care. 7. History of chronic constipation. Continue bowel regimen with MiraLax and Colace. 8. Diabetes mellitus. We will place the patient on insulin sliding scale and continue Januvia. Diabetic diet will be started when cleared by GI. 9. VT prophylaxis with heparin subcutaneous 5000 every 8 hours. 10. The patient is Full Code per POLST. 11. E coli uti Plan: - appricate consultants fu - continue tube feeding per gi - continue rocephin 1 g iv change to g tube Bactrim when dc - neurlogy consult pending - mri neg - rotated q 2 hours to avoid ulcer(dw nurse) - VTE prophylaxis - add Hydralazine 25 mg tid for better BP control if cleared by consultants will dc to snf in am Subjective Date patient seen: Dec 03, 2018 ROS Limited/Unobtainable: Yes Allergies: Coded Allergies: NO KNOWN DRUG ALLERGIES (Unverified Allergy, Unknown, 05/24/15) Subjective patient with residual greater than 75 cc and tube feeds were held, also with elevated bp 180/105 today, clonidine prn given Objective Last 24 Hour Vital Signs Date Time Temp Pulse Resp B/P (MAP) Pulse Ox O2 Delivery O2 Flow Rate FiO2 12/03/18 09:28 60 150/53 12/03/18 09:27 150/53 12/03/18 09:27 150/53 12/03/18 07:00 60 16 97 Room Air 21 12/03/18 04:00 68 12/03/18 04:00 96.4 65 18 150/53 (85) 98 12/03/18 02:04 123/60 12/03/18 01:59 65 123/60 (81) 12/03/18 00:00 98.1 67 24 134/79 (97) 98 12/03/18 00:00 66 12/02/18 21:42 65 149/92 12/02/18 21:00 Room Air 12/02/18 20:05 65 16 96 Room Air 21 12/02/18 20:00 69 12/02/18 20:00 97.9 73 20 149/92 (111) 97 12/02/18 18:04 155/60 12/02/18 16:00 97.5 60 20 155/60 (91) 100 12/02/18 16:00 60 12/02/18 14:31 66 118/67 (84) 12/02/18 14:05 106/53 (70) 12/02/18 13:16 179/107 Intake and Output 12/02/18 12/03/18 18:59 06:59 Intake Total 700 ml 780 ml Output Total 750 ml 150 ml Balance -50 ml 630 ml Intake Free Water 150 ml 180 ml IV Total 100 ml Tube Feeding 450 ml 600 ml Output Urine Total 750 ml 150 ml # Voids 1 3 # Bowel Movements 1 3 Laboratory Tests 12/03/18 06:00: White Blood Count 6.5, Red Blood Count 3.59L, Hemoglobin 10.3L, Hematocrit 31.2L , Mean Corpuscular Volume 87, Mean Corpuscular Hemoglobin 28.6, Mean Corpuscular Hemoglobin Concent 32.9, Red Cell Distribution Width 13.5, Platelet Count 210, Mean Platelet Volume 6.7, Neutrophils (%) (Auto) 59.1, Lymphocytes (% ) (Auto) 28.4, Monocytes (%) (Auto) 7.6, Eosinophils (%) (Auto) 4.2H, Basophils (%) (Auto) 0.6, Sodium Level 143, Potassium Level 3.3L, Chloride Level 108H, Carbon Dioxide Level 29, Anion Gap 7, Blood Urea Nitrogen 9, Creatinine 0.7, Estimat Glomerular Filtration Rate , Glucose Level 217H, Calcium Level 8.6, Pro- B-Type Natriuretic Peptide 759H Height (Feet): 5 Height (Inches): 8.00 Weight (Pounds): 174 General Appearance: no apparent distress, alert EENT: PERRL/EOMI, pharynx normal Neck: non-tender, supple Cardiovascular: normal rate, regular rhythm, no gallop/murmur, no JVD Respiratory/Chest: chest wall non-tender, normal breath sounds, no respiratory distress Abdomen: non tender, soft, no mass Extremities: non-tender, normal inspection, no calf tenderness Edema: no edema noted Arm (L), no edema noted Arm (R), no edema noted Leg (L), no edema noted Leg (R), no edema noted Pedal (L), no edema noted Pedal (R), no edema noted Generalized Edema: trace edema Neurologic: alert Skin: warm/dry Lymphatic: normal anterior cervical (L), normal anterior cervical (R), normal posterior cervical (L), normal posterior cervical (R), normal submandibular (L) , normal submandibular (R), normal supraclavicular (L), normal supraclavicular ( R), normal axillary (L), normal axillary (R), normal inguinal (L), normal inguinal (R), normal other SHARLENE SCHILLING Dec 03, 2018 12:33
--- NOTE | 2018-12-03 14:30 | Pulmonology Progress Note ---
Assessment/Plan Assessment/Plan Pulmonary Progress Note HPI: The patient is an 83-year-old nonverbal half-way resident with history of dysphagia status post G-tube, transferred for possible seizure and G-tube dislodgement, noted to have urinary tract infection as well as a possible retrocardiac infiltrate and left-sided effusion. The patient here in the hospital has been afebrile with stable vital signs, saturating well on room air. Unable to provide any history himself. Per the nurse, no cough, no wheezing, no hemoptysis. No fevers. No chills. He is currently on Rocephin alone, presumably for urinary tract infection and has been started on [id number] DuoNebs. He also gets Lasix per his G-tube and is on heparin subcutaneous for DVT prophylaxis. I actually had seen this patient here previously in 2016 when he was admitted with GI bleed at the time. There was concern for respiratory distress, but he had no active respiratory issues. He has been on Singulair and Flonase for allergic rhinitis. PAST MEDICAL HISTORY: 1. care home resident. 2. Bedbound. 3. Dysphagia, status post G-tube. 4. Dementia. 5. Hypertension. 6. Hyperlipidemia. 7. Diabetes. 8. Seizure disorder. 9. Osteoarthritis. 10. Anemia. 11. Allergic rhinitis. 12. Chronic constipation. ALLERGIES: No known drug allergies. PHYSICAL EXAMINATION: VITAL SIGNS NOTED: GENERAL: He is a demented, nonverbal male, in no acute distress. HEENT: Normocephalic, atraumatic. Oropharynx is clear. Moist mucous membranes. NECK: Supple without lymphadenopathy. CHEST: Clear. No wheezing, rales, or rhonchi. HEART: Regular rate and rhythm. ABDOMEN: Soft, nontender, and nondistended. G-tube clean, dry, and intact. EXTREMITIES: No cyanosis, clubbing, or edema. Labs noted: White count 7.9, hemoglobin 10.8, and platelet count 235,000. Sodium 144, potassium 3.7, chloride 109, bicarb 27, BUN 15, creatinine 0.8, glucose 254. Hemoglobin A1c 6.6. Calcium 8.9. Total bilirubin 0.8, AST 15, ALT 10, and alkaline phosphatase 103. Total protein 7.1, albumin 2.7, globulin 4.4. Triglycerides 102, cholesterol 124, LDL 65, and HDL 42. TSH 2.56. Urinalysis, 2+ protein, 1+ blood, positive nitrites, 3+ leukocyte esterase, and 20 to 30 whites. Urine culture, gram-negative bacilli. IMAGING: Initial KUB showed contrast is extravasating into the G-tube. Chest x-ray Opacification of the left hemidiaphragm. ASSESSMENT: The patient is an 83-year-old male half-way resident, nonverbal at baseline with dementia, dysphagia, status post G-tube, seizure disorder, hypertension, hyperlipidemia, allergic rhinitis, and diabetes, presenting with dislodged G-tube and concern for possible pneumonia. I have reviewed imaging myself. He has some opacification of the left hemidiaphragm, may represent a small pleural effusion, possibly dependent versus atelectasis at the left base. I doubt he is infected. He is afebrile, has normal white count. In terms of working up his pleural effusion and parenchymal abnormalities, this has to be reviewed in light of the overall goals of care in this nonverbal half-way resident. I reviewed his prior imaging at [facility], including most recently where he had a small left-sided pleural effusion. At this time, I think a less aggressive approach would be favorable. PROBLEM LIST: 1. Left lung opacification of the hemidiaphragm, possible atelectasis versus early infiltrate versus small effusion, no sign of a respiratory infection clinically. 2. Dislodged G-tube. 3. History of seizure disorder with questionable seizure. 4. care home resident. 5. Dementia. 6. Nonverbal at baseline. 7. Dysphagia, status post G-tube. 8. Hypertension, hyperlipidemia, diabetes, anemia, allergic rhinitis. TREATMENT PLAN: 1. Optimize pulmonary hygiene/mobilize as tolerated. 2. P.r.n. O2. 3. I will change the bronchodilators to p.r.n. 4. Consider observation off antibiotics. 5. If any sign of a respiratory infection, would then start coverage to include healthcare-associated pathogens. 6. GI evaluation of G-tube. 7. Monitor for further seizures. The patient is on Keppra and per report neurology evaluation is underway. 8. Monitor volumes and renal function. 9. DVT prophylaxis, heparin subcutaneous twice a day. 10. The patient is a Full Code, would discuss goals of care further with the family. 11. Continue Flonase for allergic rhinitis and Singulair. Subjective ROS Limited/Unobtainable: No Allergies: Coded Allergies: NO KNOWN DRUG ALLERGIES (Unverified Allergy, Unknown, 05/24/15) Objective Last 24 Hour Vital Signs Date Time Temp Pulse Resp B/P (MAP) Pulse Ox O2 Delivery O2 Flow Rate FiO2 12/03/18 09:28 60 150/53 12/03/18 09:27 150/53 12/03/18 09:27 150/53 12/03/18 09:00 Room Air 12/03/18 07:00 60 16 97 Room Air 21 12/03/18 04:00 68 12/03/18 04:00 96.4 65 18 150/53 (85) 98 12/03/18 02:04 123/60 12/03/18 01:59 65 123/60 (81) 12/03/18 00:00 98.1 67 24 134/79 (97) 98 12/03/18 00:00 66 12/02/18 21:42 65 149/92 12/02/18 21:00 Room Air 12/02/18 20:05 65 16 96 Room Air 21 12/02/18 20:00 69 12/02/18 20:00 97.9 73 20 149/92 (111) 97 12/02/18 18:04 155/60 12/02/18 16:00 97.5 60 20 155/60 (91) 100 12/02/18 16:00 60 12/02/18 14:31 66 118/67 (84) Intake and Output 12/02/18 12/03/18 18:59 06:59 Intake Total 700 ml 780 ml Output Total 750 ml 150 ml Balance -50 ml 630 ml Intake Free Water 150 ml 180 ml IV Total 100 ml Tube Feeding 450 ml 600 ml Output Urine Total 750 ml 150 ml # Voids 1 3 # Bowel Movements 1 3 Laboratory Tests 12/03/18 06:00: White Blood Count 6.5, Red Blood Count 3.59L, Hemoglobin 10.3L, Hematocrit 31.2L , Mean Corpuscular Volume 87, Mean Corpuscular Hemoglobin 28.6, Mean Corpuscular Hemoglobin Concent 32.9, Red Cell Distribution Width 13.5, Platelet Count 210, Mean Platelet Volume 6.7, Neutrophils (%) (Auto) 59.1, Lymphocytes (% ) (Auto) 28.4, Monocytes (%) (Auto) 7.6, Eosinophils (%) (Auto) 4.2H, Basophils (%) (Auto) 0.6, Sodium Level 143, Potassium Level 3.3L, Chloride Level 108H, Carbon Dioxide Level 29, Anion Gap 7, Blood Urea Nitrogen 9, Creatinine 0.7, Estimat Glomerular Filtration Rate , Glucose Level 217H, Calcium Level 8.6, Pro- B-Type Natriuretic Peptide 759H Current Medications Medications (Trade) Dose Ordered Sig/Annmarie Route PRN Reason Start Time Stop Time Status Last Admin Dose Admin Albuterol/ Ipratropium (Albuterol/ Ipratropium) 3 ml Q4HRT PRN HHN SOB and wheezing 11/29/18 11:45 12/04/18 00:59 Artificial Tears (Akwa-Tears) 2 drop Q6HR BOTH EYES 11/28/18 18:00 12/28/18 17:59 12/03/18 12:05 Aspirin (ASA) 81 mg DAILY GT 11/29/18 09:00 12/29/18 08:59 12/03/18 09:00 Atorvastatin Calcium (Lipitor) 40 mg BEDTIME GT 11/28/18 21:00 12/28/18 20:59 12/02/18 21:42 Carvedilol (Coreg) 25 mg Q12HR GT 11/28/18 21:00 12/28/18 20:59 12/03/18 09:28 Ceftriaxone Sodium 1 gm/ Dextrose 55 ml @ 110 mls/hr DAILY IVPB 11/29/18 09:00 12/06/18 08:59 12/03/18 09:47 Clonidine HCl (Catapres Tab) 0.1 mg Q12H PRN GT SBP>160 11/28/18 17:30 12/28/18 17:29 12/02/18 12:11 Dextrose (Dextrose 50%) 25 ml Q30M PRN IV Hypoglycemia 11/28/18 17:00 12/28/18 16:59 Dextrose (Dextrose 50%) 50 ml Q30M PRN IV Hypoglycemia 11/28/18 17:00 12/28/18 16:59 Dextrose/Sodium Chloride 1,000 ml @ 100 mls/hr Q10H IV 11/28/18 21:30 12/28/18 21:29 12/03/18 09:57 Docusate Sodium (Colace) 100 mg TWICE A DAY GT 11/28/18 18:00 12/28/18 17:59 12/02/18 18:02 Famotidine (Pepcid) 20 mg DAILY ORAL 11/29/18 09:00 12/29/18 08:59 12/03/18 09:25 Finasteride (Proscar) 5 mg DAILY ORAL 11/29/18 09:00 12/29/18 08:59 12/03/18 09:00 Fluticasone Propionate (Flonase) 1 spray Q12HR NASAL 11/28/18 21:00 12/28/18 20:59 12/03/18 09:46 Furosemide (Lasix) 20 mg TUE-TUE-TUE GT 11/29/18 21:00 12/29/18 20:59 12/01/18 20:33 Heparin Sodium (Porcine) (Heparin 5000 units/ml) 5,000 units Q12HR SUBQ 11/29/18 21:00 12/29/18 20:59 12/03/18 09:30 Hydralazine HCl (Apresoline) 25 mg Q8H ORAL 12/02/18 18:00 01/01/19 17:59 12/03/18 09:27 Insulin Aspart (NovoLOG) Q6HR SUBQ 11/30/18 12:00 12/30/18 11:59 12/03/18 12:24 Insulin Detemir (Levemir) 25 units BEDTIME SUBQ 11/28/18 21:00 12/28/18 20:59 12/02/18 21:56 Lactulose (Cephulac) 30 gm BID GT 11/28/18 18:00 12/28/18 17:59 12/02/18 08:41 Levetiracetam (Keppra) 500 mg Q12HR GT 11/28/18 21:00 12/28/18 20:59 12/03/18 09:34 Lorazepam (Ativan 2mg/ml 1ml) 1 mg Q30M PRN IV For Seizures 11/28/18 17:30 12/05/18 17:29 12/03/18 00:07 Losartan Potassium (Cozaar) 100 mg DAILY GT 11/29/18 09:00 12/29/18 08:59 12/03/18 09:27 Magnesium Oxide (Mag-Ox 400mg) 400 mg DAILY GT 11/29/18 09:00 12/29/18 08:59 12/03/18 09:25 Montelukast Sodium (Singulair) 10 mg BEDTIME GT 11/28/18 21:00 12/28/18 20:59 12/02/18 21:42 Polyethylene Glycol (Miralax) 17 gm BEDTIME GT 11/28/18 21:00 12/28/18 20:59 Potassium Chloride (K-Dur) 20 meq DAILY GT 11/29/18 09:00 12/29/18 08:59 12/03/18 09:28 Simethicone (Mylicon) 120 mg DAILY GT 11/29/18 09:00 12/29/18 08:59 12/03/18 09:28 Sitagliptin Phosphate (Januvia) 100 mg DAILY GT 11/29/18 09:00 12/29/18 08:59 12/03/18 09:00 Maximo Mistry MD Dec 03, 2018 14:30
--- NOTE | 2018-12-03 19:07 | NUR ---
NURSE NOTES: Received report from JERICHO Phipsp at 5pm. patient found resting with no overt signs of doscomfort. Hygiene provided for urinary incontinence and oral care provided with oral suctioning. No sign of respiratory or cardiac distress. Breathing easily on room air. VSS. Repositioned in bed to protect pressure points. Cont'd with plan of care.
--- NOTE | 2018-12-03 19:50 | NUR ---
NURSE NOTES: Received pt from JERICHO Keenan. Pt nonverbal and twitches to voice or touch. Bed in lowest position. GT intact and running Glucerna. Call light within reach. Will continue to monitor.
[2018-12-03] MEDS: Miralax 17gm pkt GT SCH (21:00)
[2018-12-03] MEDS: Atorvastatin 20mg tab GT SCH (21:04)
[2018-12-03] MEDS: Montelukast 10mg tablet GT SCH (21:04)
[2018-12-03] MEDS: Levemir Flexpen SUBQ SCH (21:11)
[2018-12-04] VITALS: BP 149/79
[2018-12-04] MEDS: Artificial Tears 1.4% Op Soln BOTH EYES SCH ×3 (00:49→12:03)
[2018-12-04] MEDS: NovoLOG Insulin Flexpen SUBQ SCH ×3 (00:51→12:04)
[2018-12-04] MEDS: HydrALAZINE 25mg tab ORAL SCH ×2 (01:45→10:55)
[2018-12-04 04:00] VITALS: BP 153/69
--- NOTE | 2018-12-04 07:29 | NUR ---
NURSE NOTES: Received pt from JERICHO Shine in stable condition w/no cardiopulmonary distress noted. Pt is asleep in bed, non-verbal on RA, SR on monitor, GT noted running Glucerna 1.5@ 50cc/hr. Skin alterations noted. LH 22g IV noted. Bed in lowest position, alarm on, side rails up x2 and padded per seizure precaution, call light within reach. Will continue to monitor.
--- NOTE | 2018-12-04 07:29 | NUR ---
HAND-OFF: Report given to JERICHO Patrick. Pt stable.
[2018-12-04] MEDS: D5 1/2NS 1,000 ML IV SCH ×2 (07:30→09:16)
[2018-12-04 08:00] VITALS: BP 151/80
[2018-12-04] MEDS: Aspirin Baby 81mg GT SCH (08:37)
[2018-12-04] MEDS: Docusate 100mg/10ml Liq GT SCH (08:37)
[2018-12-04] MEDS: Lactulose 20gm/30ml UDC GT SCH (08:37)
[2018-12-04] MEDS: cefTRIAXone 1 GM in D5W 55 ML IVPB SCH (08:37)
[2018-12-04] MEDS: Losartan 50mg tab GT SCH (08:38)
[2018-12-04] MEDS: Simethicone 80mg tab GT SCH (08:39)
[2018-12-04] MEDS: Carvedilol 25mg Tab GT SCH (08:39)
[2018-12-04] MEDS: Magnesium Oxide 400mg tab GT SCH (08:39)
[2018-12-04] MEDS: Heparin 5000 units/ml inj SUBQ SCH (08:41)
[2018-12-04] MEDS: Flonase Nasal Inhaler 16gm NASAL SCH (08:54)
--- NOTE | 2018-12-04 08:56 | Cardiology Report ---
APPROVED REPORT EXAM: Two-dimensional and M-mode echocardiogram with Doppler and color Doppler. INDICATION Hypertension/HCVD M-Mode DIMENSIONS IVSd1.0 (0.7-1.1cm)Left Atrium (MM)4.6 (1.6-4.0cm) LVDd4.6 (3.5-5.6cm)Aortic Root2.7 (2.0-3.7cm) PWd1.0 (0.7-1.1cm)Aortic Cusp Exc.1.8 (1.5-2.0cm) LVDs2.6 (2.5-4.0cm) PWs1.1 cm Normal left ventricular chamber size, systolic function and wall motion. Left ventricular ejection fraction estimated to be 65 %. No evidence of left ventricular hypertrophy. No evidence of pericardial effusion. Right atrial size at upper limits of normal. All other cardiac chamber sizes are within normal limits. Focal aortic valve sclerosis with adequate cusp excursion. Thickened mitral valve leaflets with normal excursion. Mitral annulus and aortic root calcification. Pulmonic valve not well visualized. Normal tricuspid valve structure. IVC at normal size with physiologic collapse. A color flow and spectral Doppler study was performed and revealed: Trace mitral regurgitation. Mitral diastolic velocities suggest reduced left ventricular relaxation c/w mild LV diastolic dysfunction (Grade I ). Trace tricuspid regurgitation. Tricuspid systolic velocities suggests peak right ventricular systolic pressure of 24 mmHg Trace pulmonic regurgitation present.
--- NOTE | 2018-12-04 09:14 | NUR ---
NURSE NOTES: Spoke to Nicholas from pharmacy inquiring about patient's scheduled D51/2NS for this morning, Nicholas states that the auto clocks repairer nurse documented it as "not admitted" and I was instructed to go ahead and administer the morning dose and scan the bag now.
--- NOTE | 2018-12-04 10:10 | NUR ---
DISCHARGE PLANNING FAXED CLINICALS TO [facility] T: [phone] F: [phone] AWAIT ACCEPTANCE AND ASSIGNED ROOM NUMBER
--- NOTE | 2018-12-04 10:53 | NUR ---
RD ASSESSMENT & RECOMMENDATIONS SEE CARE ACTIVITY FOR COMPLETE ASSESSMENT DAILY ESTIMATED NEEDS: Needs based on bed bound, DM, wound, 72kg adj 23-28 kcals/kg 6325-2970 total kcals 1.25-1.5 g protein/kg 90-108 g total protein 25-30 mL/kg 7670-5500 total fluid mLs NUTRITION DIAGNOSIS: 1)Increased kcal and protein needs R/T wound healing AEB pt w/ sacral wound, partial thickness per documentation. 2) Swallowing difficulty R/T dysphagia AEB pt w/ PEG feedings 3) Altered nutrition related lab values R/T diabetes AEB elev BG (217 160), POC glu (199 215 212 200), A1C 6.6 CURRENT TF:Glucerna 1.5 @50 ml ENTERAL NUTRITION RECOMMENDATIONS: Glucerna 1.5 @50ml/hr x 24 hrs to provide 1200ml, 1800 kcal, 99g pro, 911ml free H2O - Maintain current TF @ goal - HOB over 30 degrees - Without IVF: H2O flush of 150ml q 4 hrs ADDITIONAL RECOMMENDATIONS: 1) Add JG BID for wound care 2) Obtain a calibrated bed scale wt for accurate CBW 3) Monitor lytes daily on lasix/ replete as needed 4) DC D5 IVF for improved BG control- TF @ goal, Na now wnl. -> Rec increase water flushes instead
[2018-12-04 12:00] VITALS: BP 148/80
--- NOTE | 2018-12-04 12:54 | NUR ---
DISCHARGE PLANNED [facility]IENT [facility]P T: [phone] FOR NURSE TO NURSE REPORT [facility] HAS BEEN ARRANGED FOR 1430 INFORMATION SYSTEMS SECURITY OFFICER SPOKE WITH DAUGHTER,EVAN, WHO IS IN AGREEMENT WITH DISCHARGE PLAN
--- NOTE | 2018-12-04 15:40 | NUR ---
NURSE NOTES: Report given to Jessica from [facility] Pt was discharged in stable condition via EMT personnel in transport bed on RA. IV was d/c and tele box removed and returned to unit. Patient belongings list reviewed and signed with EMT personnel ([employer]). Family informed of discharge.
--- NOTE | 2018-12-04 18:15 | Discharge Summary ---
Discharge Summary Discharge Summary _ DATE OF ADMISSION: 11/28/2018 DATE OF DISCHARGE: 12/04/2018 DISCHARGED BY: Dr Love REASON FOR ADMISSION: 83 years old male, resident of intermediate facility, with past medical history of seizure disorder, diabetes mellitus, hypertension, hyperlipidemia, advanced Alzheimer's dementia, dysphagia, G-tube, chronic constipation, GERD, history of prior pneumonia, noted in the morning to have seizure activity at the facility. G-tube got dislodged. Patient was transferred to emergency room for evaluation . Upon evaluation patient also found to have evidence of urinary tract infection. Blood pressure was elevated. G-tube was replaced by emergency room physician, and KUB confirmed proper placement. Patient loaded with Keppra. Patient subsequently admitted for further management CONSULTANTS: bright cutter Dr Monzon pulmonary Dr Mistry GI specialist Dr Scott [facility] COURSE: Patient admitted to telemetry floor. Patient started on empiric antibiotic. Urine culture revealed E. coli. Patient completed antibiotic course while in the hospital. Seizure precaution maintained. Keppra continued. Ativan was on board as needed for breakthrough seizures. MRI of the brain revealed chronic and age-related changes. No evidence of acute intracranial bleeding, mass-effect or infarct. No further seizure activity while in the hospital was observed. GI specialist followed. As mentioned above, KUB confirmed proper G-tube placement. Patient started on G tube feeding with strict aspiration precaution. Bowel regimen instituted. Patient was able to tolerate tube feeding. GI prophylaxis provided. While on telemetry patient noted to have first degree AV block. Hydraulic Specialist followed. Echocardiogram revealed preserved ejection fraction of 65%. No evidence of left ventricular hypertrophy. No evidence of pericardial effusion. No evidence of wall motion abnormality. Right ventricular systolic pressure of 24. No indication for pacemaker as per bright cutter. P Blood pressure was managed with beta-hugh, hydralazine, ARB and Lasix. Blood pressure stabilized. Patient showed transient supraventricular tachycardia , nonsustained. Hydraulic Specialist recommended to continue small dose of Coreg. Statin continued. Lipid panel stable. TSH within normal limits. Chest x-ray initially demonstrated cardiomegaly, possible left basilar pleural and/or parenchymal disease. Animal Anatomist followed. Supplemental oxygen was on board as needed to keep pulse oximetry above 92%. Pulse oximetry was stable on room air. Pulmonary toilet with bronchodilator was on board as needed. No signs of respiratory infection clinically. DVT prophylaxis provided. Blood sugar was managed with sliding scale of insulin. Hemoglobin A1c 8.2. Patient will need to improve glycemic control as outpatient in the facility. Patient clinically stabilized and was ready for transfer back to intermediate facility for continuation of care. FINAL DIAGNOSES: 1G-tube dislodgment , status post replacement Seizure disorder with new seizure episode. E. coli UTI Dysphagia, G-tube dependent Chronic constipation Hypertension , poorly controlled Hyperlipidemia Diabetes mellitus Anemia Alzheimer's dementia Contractures DISCHARGE MEDICATIONS: See Medication Reconciliation list. DISCHARGE INSTRUCTIONS: Patient was discharged to the intermediate facility. Follow up with medical doctor at the facility. I have been assigned to dictate discharge summary for this account. I was not involved in the patient's management. Honey Teague NP Dec 04, 2018 18:15
--- NOTE | 2018-12-04 19:29 | General Progress Note ---
Assessment/Plan Status: stable, progressing Assessment/Plan: Assessment - dysphagia / GT dependent - constipation - OBS - contractures - poor prognosis Recommendations - bowel regimen - continue TF - monitor residuals - elevate HOB - d/c planning Subjective Allergies: Coded Allergies: NO KNOWN DRUG ALLERGIES (Unverified Allergy, Unknown, 05/24/15) Subjective Above noted d/w RN tolerating TF (+) BM Objective Last 24 Hour Vital Signs Date Time Temp Pulse Resp B/P (MAP) Pulse Ox O2 Delivery O2 Flow Rate FiO2 12/04/18 12:00 97.6 70 22 148/80 (102) 96 12/04/18 12:00 71 12/04/18 10:55 151/80 12/04/18 10:31 67 20 94 Room Air 21 12/04/18 09:00 Room Air 12/04/18 08:39 75 151/80 12/04/18 08:38 151/80 12/04/18 08:00 72 12/04/18 08:00 97.3 75 20 151/80 (103) 97 12/04/18 04:00 72 12/04/18 04:00 98.2 73 18 153/69 (97) 98 12/04/18 01:45 149/79 12/04/18 00:00 71 12/04/18 00:00 98.1 74 18 149/79 (102) 95 12/03/18 21:23 75 153/75 12/03/18 21:00 Room Air 12/03/18 20:24 64 17 97 Room Air 21 12/03/18 20:00 73 12/03/18 20:00 97.4 75 18 153/75 (101) 98 Intake and Output 12/03/18 12/04/18 18:59 06:59 Intake Total 50 ml Balance 50 ml Tube Feeding 50 ml # Voids 3 3 # Bowel Movements 1 Height (Feet): 5 Height (Inches): 8.00 Weight (Pounds): 174 Objective Obtunded NCAT supple CTA RR abd distended, soft, (+) GT contracted Chava Appiah MD Dec 04, 2018 19:29
--- NOTE | 2018-12-04 22:12 | Pulmonology Progress Note ---
Assessment/Plan Assessment/Plan Pulmonary Progress Note HPI: The patient is an 83-year-old nonverbal [facility] resident with history of dysphagia status post G-tube, transferred for possible seizure and G-tube dislodgement, noted to have urinary tract infection as well as a possible retrocardiac infiltrate and left-sided effusion. The patient here in the hospital has been afebrile with stable vital signs, saturating well on room air. Unable to provide any history himself. Per the nurse, no cough, no wheezing, no hemoptysis. No fevers. No chills. He is currently on Rocephin alone, presumably for urinary tract infection and has been started on [id number] DuoNebs. He also gets Lasix per his G-tube and is on heparin subcutaneous for DVT prophylaxis. I actually had seen this patient here previously in 2016 when he was admitted with GI bleed at the time. There was concern for respiratory distress, but he had no active respiratory issues. He has been on Singulair and Flonase for allergic rhinitis. PAST MEDICAL HISTORY: 1. longterm resident. 2. Bedbound. 3. Dysphagia, status post G-tube. 4. Dementia. 5. Hypertension. 6. Hyperlipidemia. 7. Diabetes. 8. Seizure disorder. 9. Osteoarthritis. 10. Anemia. 11. Allergic rhinitis. 12. Chronic constipation. ALLERGIES: No known drug allergies. PHYSICAL EXAMINATION: VITAL SIGNS NOTED: GENERAL: He is a demented, nonverbal male, in no acute distress. HEENT: Normocephalic, atraumatic. Oropharynx is clear. Moist mucous membranes. NECK: Supple without lymphadenopathy. CHEST: Clear. No wheezing, rales, or rhonchi. HEART: Regular rate and rhythm. ABDOMEN: Soft, nontender, and nondistended. G-tube clean, dry, and intact. EXTREMITIES: No cyanosis, clubbing, or edema. Labs noted: White count 7.9, hemoglobin 10.8, and platelet count 235,000. Sodium 144, potassium 3.7, chloride 109, bicarb 27, BUN 15, creatinine 0.8, glucose 254. Hemoglobin A1c 6.6. Calcium 8.9. Total bilirubin 0.8, AST 15, ALT 10, and alkaline phosphatase 103. Total protein 7.1, albumin 2.7, globulin 4.4. Triglycerides 102, cholesterol 124, LDL 65, and HDL 42. TSH 2.56. Urinalysis, 2+ protein, 1+ blood, positive nitrites, 3+ leukocyte esterase, and 20 to 30 whites. Urine culture, gram-negative bacilli. IMAGING: Initial KUB showed contrast is extravasating into the G-tube. Chest x-ray Opacification of the left hemidiaphragm. ASSESSMENT: The patient is an 83-year-old male [facility] resident, nonverbal at baseline with dementia, dysphagia, status post G-tube, seizure disorder, hypertension, hyperlipidemia, allergic rhinitis, and diabetes, presenting with dislodged G-tube and concern for possible pneumonia. I have reviewed imaging myself. He has some opacification of the left hemidiaphragm, may represent a small pleural effusion, possibly dependent versus atelectasis at the left base. I doubt he is infected. He is afebrile, has normal white count. In terms of working up his pleural effusion and parenchymal abnormalities, this has to be reviewed in light of the overall goals of care in this nonverbal [facility] resident. I reviewed his prior imaging at [facility], including most recently where he had a small left-sided pleural effusion. At this time, I think a less aggressive approach would be favorable. PROBLEM LIST: 1. Left lung opacification of the hemidiaphragm, possible atelectasis versus early infiltrate versus small effusion, no sign of a respiratory infection clinically. 2. Dislodged G-tube. 3. History of seizure disorder with questionable seizure. 4. longterm resident. 5. Dementia. 6. Nonverbal at baseline. 7. Dysphagia, status post G-tube. 8. Hypertension, hyperlipidemia, diabetes, anemia, allergic rhinitis. TREATMENT PLAN: 1. Optimize pulmonary hygiene/mobilize as tolerated. 2. P.r.n. O2. 3. I will change the bronchodilators to p.r.n. 4. Consider observation off antibiotics. 5. If any sign of a respiratory infection, would then start coverage to include healthcare-associated pathogens. 6. GI evaluation of G-tube. 7. Monitor for further seizures. The patient is on Keppra and per report neurology evaluation is underway. 8. Monitor volumes and renal function. 9. DVT prophylaxis, heparin subcutaneous twice a day. 10. The patient is a Full Code, would discuss goals of care further with the family. 11. Continue Flonase for allergic rhinitis and Singulair. Seen earlier Subjective ROS Limited/Unobtainable: No Allergies: Coded Allergies: NO KNOWN DRUG ALLERGIES (Unverified Allergy, Unknown, 05/24/15) Objective Last 24 Hour Vital Signs Date Time Temp Pulse Resp B/P (MAP) Pulse Ox O2 Delivery O2 Flow Rate FiO2 12/04/18 12:00 97.6 70 22 148/80 (102) 96 12/04/18 12:00 71 12/04/18 10:55 151/80 12/04/18 10:31 67 20 94 Room Air 21 12/04/18 09:00 Room Air 12/04/18 08:39 75 151/80 12/04/18 08:38 151/80 12/04/18 08:00 72 12/04/18 08:00 97.3 75 20 151/80 (103) 97 12/04/18 04:00 72 12/04/18 04:00 98.2 73 18 153/69 (97) 98 12/04/18 01:45 149/79 12/04/18 00:00 71 12/04/18 00:00 98.1 74 18 149/79 (102) 95 Intake and Output 12/03/18 12/04/18 19:00 07:00 Intake Total 200 ml Balance 200 ml Intake Free Water 100 ml Tube Feeding 100 ml # Voids 3 3 # Bowel Movements 1 Maximo Mistry MD Dec 04, 2018 22:12
== END 2018-12-04 15:50 | DRG 100 ==
LOC: EDBD 09:46 → EMR 10:25 → 2E 10:31 → EDBEDREQ 12:13
PROC: 0D20XUZ Change Feeding Device in Upper Intestinal Tract, External Approach (ICD-10-PCS; principal; 2018-11-29)
DX: G40.909 Epilepsy, unspecified, not intractable, without status epilepticus (principal); J18.9 Pneumonia, unspecified organism; N39.0 Urinary tract infection, site not specified; Z43.1 Encounter for attention to gastrostomy; I47.1 Supraventricular tachycardia; I10 Essential (primary) hypertension; K59.09 Other constipation; E11.9 Type 2 diabetes mellitus without complications; E78.5 Hyperlipidemia, unspecified; G30.9 Alzheimer's disease, unspecified; F02.80 Dementia in other diseases classified elsewhere, unspecified severity, without behavioral disturbance, psychotic disturbance, mood disturbance, and anxiety; R13.10 Dysphagia, unspecified; B96.20 Unspecified Escherichia coli [E. coli] as the cause of diseases classified elsewhere; M24.50 Contracture, unspecified joint; M19.90 Unspecified osteoarthritis, unspecified site; K21.9 Gastro-esophageal reflux disease without esophagitis; I44.0 Atrioventricular block, first degree
CPT/HCPCS: 36415; 70551; 71045; 74018; 80048; 80053; 80061; 80299; 81003; 82306; 82550; 82553; 82962; 83036; 83690; 83880; 84439; 84443; 84484; 85025; 87081; 87086; 87181; 93005; 93306; 94640; 94664; 96365; 96375; 99285; J1815; J7620; J8499; S5561